=== PATIENT | male | born 1930 | race Two or more races ===

== ENCOUNTER 2017-07-30 09:01 | Emergency (ER) | payer MEDICARE, MEDICAID ==
[2017-07-30 09:21] VITALS: BP 157/57
--- NOTE | 2017-07-30 10:09 | UC ---
Respiratory Complaint HPI - HPI Summary HPI Summary: C/o sob and cough for 4-5 days, no fever, unable to lay flat at night, patient states he gets chest and abdomen with cough - History of Current Complaint Chief Complaint: UCRespiratory Stated Complaint: COUGH ABD PAIN Time Seen by Provider: 07/30/17 10:02 Hx Obtained From: Patient Onset/Duration: Sudden Onset, Lasting Days - 4, Still Present Timing: Constant Severity Initially: Moderate Severity Currently: Moderate Character: Cough: Nonproductive Aggravating Factors: Recumbent Position Alleviating Factors: Upright Position Associated Signs And Symptoms: Positive: Dyspnea - Allergies/Home Medications Allergies/Adverse Reactions: Allergies Allergy/AdvReac Type Severity Reaction Status Date / Time No Known Allergies Allergy Verified 07/30/17 09:21 PMH/Surg Hx/FS Hx/Imm Hx Previously Healthy: Yes - Surgical History Surgical History: Yes Surgery Procedure, Year, and Place: APPENDECTOMY - Family History Known Family History: Positive: None - Social History Occupation: Retired Lives: With Family Alcohol Use: None Substance Use Type: None Smoking Status (MU): Never Smoked Tobacco Review of Systems Constitutional: Negative Skin: Negative Eyes: Negative ENT: Negative Respiratory: Negative, Shortness Of Breath, Cough Cardiovascular: Chest Pain - with cough Gastrointestinal: Negative Genitourinary: Negative Motor: Negative Neurovascular: Negative Musculoskeletal: Negative Neurological: Negative Psychological: Negative Is Patient Immunocompromised?: No All Other Systems Reviewed And Are Negative: Yes Physical Exam Triage Information Reviewed: Yes Appearance: Well-Nourished - mild, Ill-Appearing - mild, Pain Distress - mild Vital Signs: Initial Vital Signs Temp 98.4 F 07/30/17 09:17 Pulse 125 07/30/17 09:17 Resp 18 07/30/17 09:17 BP 157/57 07/30/17 09:17 Pulse Ox 96 07/30/17 09:17 Vital Signs Reviewed: Yes Eye Exam: Normal Eyes: Positive: Conjunctiva Clear ENT Exam: Normal ENT: Positive: Normal ENT inspection, Hearing grossly normal, Pharynx normal, TMs normal, Other - Hard of Hearing. Negative: Nasal congestion, Tonsillar swelling, Tonsillar exudate, Trismus, Muffled voice, Hoarse voice, Dental tenderness Dental Exam: Normal Neck exam: Normal Neck: Positive: Supple, Nontender, No Lymphadenopathy Respiratory Exam: Normal Respiratory: Positive: Chest non-tender, Lungs clear, Normal breath sounds, No respiratory distress, No accessory muscle use Cardiovascular Exam: Normal Cardiovascular: Positive: RRR, No Murmur, Pulses Normal, Brisk Capillary Refill Abdominal Exam: Normal Abdomen Description: Positive: Nontender, No Organomegaly, Soft. Negative: CVA Tenderness (R), CVA Tenderness (L) Bowel Sounds: Positive: Present Musculoskeletal Exam: Normal Musculoskeletal: Positive: Strength Intact, ROM Intact, No Edema Neurological Exam: Normal Neurological: Positive: Alert, Muscle Tone Normal Psychological Exam: Normal Skin Exam: Normal UC Diagnostic Evaluation - Laboratory O2 Sat by Pulse Oximetry: 96 - EKG Cardiac Rate: NL Cardiac Rhythm: AFib: Normal Ectopy: None ST Segment: Normal Respiratory Course/Dx - Course Course Of Treatment: IV, O2, transfer to [facility] [place] by EMS - Differential Dx/Diagnosis Provider Diagnoses: New onset A-fib, SOB Discharge - Discharge Plan Condition: Guarded Disposition: TRANS HIGHER LVL OF CARE FAC Referrals: No Primary Care Phys,NOPCP [Primary Care Provider] -
== END 2017-07-30 10:44 | disposition short-term general hospital (02) ==
LOC: UCEAST 09:01
DX: R06.02 Shortness of breath (principal); I48.91 Unspecified atrial fibrillation; Z90.89 Acquired absence of other organs
CPT/HCPCS: 93005; 99203; G0463

== ENCOUNTER 2017-07-30 11:09 | Observation (INO) | payer MEDICARE, MEDICAID ==
[2017-07-30] MEDS ORDERED: NS 0.9% 1000 ML* 1,000 ML IV ONE (11:25)
[2017-07-30 11:43] LABS: ABS Basophils 0.1 10^3/ul (0-0.2); ABS Eosinophils 0.5 10^3/ul (0-0.6); ABS Lymphocytes 2.9 10^3/ul (1.0-4.8); ABS Monocytes 0.6 10^3/ul (0-0.8); ABS Neutrophils 5.6 10^3/ul (1.5-7.7); ABS Nucleated RBC 0 10^3/ul; Eosinophil % 4.7 % (0-6); Hematocrit 46 % (42-52); Hemoglobin 15.4 g/dl (14.0-18.0); Lymphocyte % 29.8 % (25-47); Mean Corpuscular HGB Conc 34 g/dl (31-36); Mean Corpuscular Hemoglobin 30 pg (27-31); Mean Corpuscular Volume 88 fL (80-94); Mean Platelet Volume 8 um3 (7.4-10.4); Nucleated Red Blood Cells % 0; Platelet Count 250 10^3/ul (150-450); Red Blood Count 5.21 10^6/ul (4.0-5.4); Red Cell Distribution Width 16 % (10.5-15); White Blood Count 9.6 10^3/ul (3.5-10.8)
[2017-07-30 12:06] LABS: INR 0.98 (0.77-1.02)
[2017-07-30 12:47] LABS: Urine Appearance Clear; Urine Blood Negative (Negative); Urine Color Yellow; Urine Ketones Negative (Negative); Urine Protein Negative (Negative); Urine Urobilinogen Positive (Negative)
--- NOTE | 2017-07-30 13:10 | RAD ---
Indication: Shortness of breath. Single frontal view of the chest performed at 1207 hours was reviewed. Comparison is made with previous exam dated July 08, 2012. No mediastinal shift is noted. Heart is of normal size and configuration. Lung frazier appear clear. IMPRESSION: NO ACTIVE CARDIOPULMONARY DISEASE IS NOTED.
--- NOTE | 2017-07-30 14:12 | ED ---
Suhas Ocasio Stephanie, scribed for Salty Lackey MD on 07/30/17 at 1210 . Shortness of Breath - HPI Summary HPI Summary: The pt is an 86 y/o M BIBA from to the ED with c/o SOB that began 6 days ago. Symptoms include productive cough (white and red sputum), abd pain and lower back pain. The pt denies fever, calf pain, lower extremity pain, diarrhea , dysuria and hematuria. The pt reports hemorrhoids for the past two months. 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 Onset/Duration: Lasting Days - 6, Still Present Timing: Constant Associated Signs & Symptoms: Cough (Productive), Cough (Bloody Sputum) - Allergy/Home Medications Allergies/Adverse Reactions: Allergies Allergy/AdvReac Type Severity Reaction Status Date / Time No Known Allergies Allergy Verified 07/30/17 09:21 PMH/Surg Hx/FS Hx/Imm Hx Endocrine/Hematology History: Denies: Hx Diabetes, Hx Thyroid Disease Cardiovascular History: Denies: Hx Hypertension Respiratory History: Denies: Hx Asthma, Hx Chronic Obstructive Pulmonary Disease (COPD) GI History: Denies: Hx Ulcer - Surgical History Surgery Procedure, Year, and Place: APPENDECTOMY Infectious Disease History: No Infectious Disease History: Denies: Hx Clostridium Difficile, Hx Hepatitis, Hx Human Immunodeficiency Virus (HIV), Hx of Known/Suspected MRSA, Hx Shingles, Hx Tuberculosis, Hx Known/ Suspected VRE, Hx Known/Suspected VRSA, History Other Infectious Disease, Traveled Outside the [place] in Last 30 Days - Family History Known Family History: Positive: Unknown - Pt denies family history - Social History Occupation: Retired Lives: With Family Alcohol Use: None Substance Use Type: Reports: None Smoking Status (MU): Never Smoked Tobacco Review of Systems Negative: Fever Positive: Cough - productive Positive: Abdominal Pain. Negative: Diarrhea Positive: other - hemorrhoids . Negative: dysuria, hematuria Positive: Other - lower back pain. Negative: calf pain, lower extremity pain All Other Systems Reviewed And Are Negative: Yes Physical Exam - Summary Physical Exam Summary: General: well-appearing, no acute pain distress Skin: warm, color reflects adequate perfusion, dry Head: normal Eyes: EOMI, BREE ENT: normal Neck: supple, nontender Respiratory: breath sounds present, Bilateral expiratory wheezes. Cardiovascular: RRR Abdomen: soft, nontender Bowel: present Musculoskeletal: normal, strength/ROM intact Neurological: normal, sensory/motor intact, A&O x3 Psychological: affect/mood appropriate Triage Information Reviewed: Yes Vital Signs On Initial Exam: Initial Vitals Temp Pulse Resp BP Pulse Ox 98.4 F 60 17 168/76 95 07/30/17 11:15 07/30/17 11:15 07/30/17 11:15 07/30/17 11:15 07/30/17 11:15 Vital Signs Reviewed: Yes - Schwertner Coma Scale Coma Scale Total: 15 Diagnostics - Vital Signs Vital Signs Temp Pulse Resp BP Pulse Ox 07/30/17 11:30 59 12 158/65 97 07/30/17 11:22 63 13 156/78 98 07/30/17 11:20 59 19 94 07/30/17 11:16 168/76 07/30/17 11:15 98.4 F 60 17 168/76 95 - Laboratory Lab Results: Lab Results 07/30/17 07/30/17 07/30/17 Range/Units 10:13 10:13 11:41 WBC 9.6 (3.5-10.8) 10^3/ul RBC 5.21 (4.0-5.4) 10^6/ul Hgb 15.4 (14.0-18.0) g/dl Hct 46 (42-52) % MCV 88 (80-94) fL MCH 30 (27-31) pg MCHC 34 (31-36) g/dl RDW 16 H (10.5-15) % Plt Count 250 (150-450) 10^3/ul MPV 8 (7.4-10.4) um3 Neut % (Auto) 58.8 (38-83) % Lymph % (Auto) 29.8 (25-47) % Kimble % (Auto) 6.2 (1-9) % Eos % (Auto) 4.7 (0-6) % Baso % (Auto) 0.5 (0-2) % Absolute Neuts (auto) 5.6 (1.5-7.7) 10^3/ul Absolute Lymphs (auto) 2.9 (1.0-4.8) 10^3/ul Absolute Monos (auto) 0.6 (0-0.8) 10^3/ul Absolute Eos (auto) 0.5 (0-0.6) 10^3/ul Absolute Basos (auto) 0.1 (0-0.2) 10^3/ul Absolute Nucleated RBC 0 10^3/ul Nucleated RBC % 0 Sodium 136 (133-145) mmol/L Potassium 4.5 (3.5-5.0) mmol/L Chloride 103 (101-111) mmol/L Carbon Dioxide 27 (22-32) mmol/L Anion Gap 6 (2-11) mmol/L BUN 15 (6-24) mg/dL Creatinine 0.69 (0.67-1.17) mg/dL Est GFR ( Amer) 140.1 (>60) Est GFR (Non-Af Amer) 109.0 (>60) BUN/Creatinine Ratio 21.7 H (8-20) Glucose 120 H (70-100) mg/dL Lactic Acid 0.9 (0.5-2.0) mmol/L Calcium 9.2 (8.6-10.3) mg/dL Magnesium 2.1 (1.9-2.7) mg/dL Total Bilirubin 1.20 H (0.2-1.0) mg/dL AST 43 H (13-39) U/L ALT 38 (7-52) U/L Alkaline Phosphatase 124 H (34-104) U/L Total Creatine Kinase 107 (10-223) U/L CK-MB (CK-2) 4.4 (0.6-6.3) ng/mL Troponin I 0.01 (<0.04) ng/mL C-Reactive Protein 5.24 H (< 5.00) mg/L Total Protein 7.3 (6.4-8.9) g/dL Albumin 4.1 (3.2-5.2) g/dL Globulin 3.2 (2-4) g/dL Albumin/Globulin Ratio 1.3 (1-3) Lipase 18 (11.0-82.0) U/L TSH Pending Result Diagrams: 07/30/17 10:13 07/30/17 10:13 Lab Statement: Any lab studies that have been ordered have been reviewed, and results considered in the medical decision making process. - Radiology CXR Xray Interpretation: No Acute Changes Radiology Interpretation Completed By: Radiologist - NO ACTIVE CARDIOPULMONARY DISEASE IS NOTED. - EKG 11:36 EKG Rhythm: Sinus Bradycardia - 41 BPM. . P waves not easily found. Borderline ST elevation in anterior leads with no reciprocal change. EKG Interpretation: Slow a fib or heart block. Course/Dx - Course Course Of Treatment: Medications reviewed. EKG REVIEWED WITH DR SILVESTRE, CARDIOLOGY. ADMIT HOSPITALIST. NO CRITICAL CARE TIME. - Diagnoses Provider Diagnoses: New onset a-fib, Dyspnea Discharge - Discharge Plan Condition: Stable Disposition: ADMITTED TO [facility] Referrals: No Primary Care Phys,NOPCP [Primary Care Provider] - The documentation as recorded by the Suhas marques Stephanie accurately reflects the service I personally performed and the decisions made by , Salty Lackey MD.
[2017-07-30] MEDS ORDERED: NS 0.9% 1000 ML* 1,000 ML IV SCH (15:00)
[2017-07-30] MEDS: guaiFENesin LIQ* 100 MG/5 ML UDC PO PRN (16:59)
[2017-07-30] MEDS: Acetaminophen TAB* 325 MG PO PRN (16:59)
[2017-07-30] MEDS: Albuterol HFA INHALER* 8 gm MDI INH PRN (18:05)
--- NOTE | 2017-07-30 21:01 | HP ---
CC: Louie Vidales MD * HISTORY AND PHYSICAL: DATE OF ADMISSION: 07/30/17 PRIMARY CARE PROVIDER: Louie Vidales MD ATTENDING PHYSICIAN: Elsi Mazariegos DO * (dictated by Julito Younger NP). CHIEF COMPLAINT: Cough and shortness of breath. HISTORY OF PRESENT ILLNESS: Mr. Estes is an 86-year-old Mexican speaking male, who presented to the emergency room with complaints of 4 to 5 days of shortness of breath and cough and being unable to lie flat due to shortness of breath. He also reports abdominal pain when coughing. He denies any fever or chills. He has been taking rbxe-hif-[id number] cough medication and he does not feel this is helping with his pain. Please note the patient is Mexican speaking only. At the time of my interview, there is no family at bedside to interpret and I had the assistance of hospital technician anatomic pathology to assist with some basic interpretation. Due to the patient's continued cough, his family brought him to the emergency room for further evaluation. The patient initially presented to urgent care when he was found to be in potentially new atrial fibrillation. He was sent to the emergency room for further evaluation. While in the emergency room, the patient had a chest x-ray showing no active cardiopulmonary disease. He had an EKG showing an atrial fibrillation with bradycardic rate of 40. There were no previous EKGs for comparison, but this EKG is similar to previous EKG from urgent care today. He had a negative urinalysis. He had labs that were unremarkable. He had a D-dimer that was less than 200. Troponin 0.01. TSH 1.43. No leukocytosis. PAST MEDICAL HISTORY: 1. Prostate cancer. 2. Hemorrhoids. 3. Possible history of atrial fibrillation, the family is unsure. PAST SURGICAL HISTORY: 1. The patient is status post prostatectomy. 2. Status post cataracts. MEDICATIONS: Home medications include ibuprofen 200 mg oral every 6 hours as needed for pain. ALLERGIES: No known drug allergies. FAMILY HISTORY: The patient denies any family history of heart disease, diabetes or cancer. SOCIAL HISTORY: The patient denies tobacco, recreational drug use. He occasionally drinks alcohol. He lives with his family. His daughter, Forest, will be his surrogate decision maker in the event he is unable to make decisions for himself. REVIEW OF SYSTEMS: I performed a 14-point review of systems. All the pertinent positives and negatives are mentioned in the history of present illness. The remaining review of systems are negative. PHYSICAL EXAMINATION GENERAL APPEARANCE: The patient is alert, pleasant, appears to be in no acute distress. VITAL SIGNS: Temperature 98.6, heart rate 53, respiratory rate 15, O2 sat 98% on room air, blood pressure 143/65. HEENT: Normocephalic and atraumatic. Pupils are equal and reactive to light. Extraocular movements are intact. RESPIRATORY: There is no accessory muscle use and the lungs have expiratory wheezing bilaterally. CARDIOVASCULAR: Irregular rate and rhythm, bradycardic. S1 and S2 are present. There are no murmurs, rubs, or gallops. ABDOMEN: Soft, nontender, and nondistended. Bowel sounds present x4. EXTREMITIES: There is no lower extremity edema. DP and PT pulses are 2+ and symmetric. MUSCULOSKELETAL: There is no clubbing or cyanosis noted. The patient exhibits good strength in all extremities. NEUROLOGIC: The patient is alert and oriented x4. Please note he is Mexican speaking only. Cranial nerves II through XII are grossly intact. PSYCHOLOGICAL: The patient is calm and cooperative. SKIN: There are no rashes or abnormalities. DIAGNOSTIC STUDIES/LABORATORY DATA: Sodium 137, potassium 4.5, chloride 103, CO2 of 27, BUN 15, creatinine 0.69, glucose 123. D-dimer less than 200. Troponin 0.01. CRP 5.24. BNP 146. TSH 1.43. AST 43, ALT 38, total bilirubin 1.20. White blood cell count 9.6, hemoglobin 15.4, hematocrit 46, platelet count 250,000. Urinalysis is negative. EKG from around 10 o'clock this morning shows an atrial fibrillation. Repeat EKG in the emergency room at approximately 11 a.m. shows an atrial fibrillation with a rate of 41. The two EKGs are similar. There is no previous EKGs for comparison. Chest x-ray from today. Radiologist's impression: No active cardiopulmonary disease. IMPRESSION: Mr. Estes is an 86-year-old male with past medical history significant for prostate cancer and hemorrhoids, who presented to the emergency room with complaints of shortness of breath and cough for several days. He will be admitted as an observation for new onset atrial fibrillation and bronchitis. ASSESSMENT/PLAN: 1. Atrial fibrillation. It is unclear if this is truly new onset or not. I will obtain medical records from Dr. Vidales's office. The patient's rate is controlled. He is actually bradycardic at this time. I will not start him on beta-blockers or any other rate controlled agents. According to the CHADS-VASc2 , the patient has 2 points for his age placing him a stroke risk of 2.2% per year and greater than 90,000. The patient is at a 2.9% risk of stroke, transient ischemic attack and systemic embolism. Some recommendations suggest that scores 2 and greater should be anticoagulated. For now, I am going to hold off on anticoagulation. We will obtain old records on the patient and to allow time to discuss with his family, the risks and benefits of anticoagulation therapy. Also check an echocardiogram. The patient had a D- dimer of less than 200. I have a low suspicion that his atrial fibrillation is caused by a pulmonary embolism. We will monitor the patient on telemetry 2. Shortness of breath and cough. I suspect the patient likely has a bronchitis. He is afebrile and has no leukocytosis. I am going to hold on any antibiotics at this time. We will give him albuterol inhaler as needed for shortness of breath and wheeze. If at any point he develops fever or leukocytosis, we will consider antibiotic therapy. His chest x-ray shows no active lung disease at this time. 3. Fluids, electrolytes, and nutrition. The patient will be on a heart healthy diet. 4. Code status. Full code. 5. DVT prophylaxis. The patient is at a high risk. He will be placed on subcu heparin. 6. Disposition. Observation. TIME SPENT: Time for this admission was approximately 60 minutes, greater than half of that was spent with the patient discussing medications, past medical history and the events leading up to his arrival today, and performing a physical examination. The case has been reviewed with the attending, Dr. Mazariegos, who agrees with the plan of care. JULITO YOUNGER, SHAVONNE [id number]/[facility] #: [id number] F F THOMPSON HOSPITALAnaid
[2017-07-30] MEDS: Heparin VIAL(*) 5000 UNITS/ML VIAL (FIVE THOUSAND) SUBCUT SCH (22:40)
--- NOTE | 2017-07-31 00:04 | PN ---
Progress Note - Progress Note Date of Service: 07/31/17 Note: Patient sleeping and noted to have frequent pauses as long as 3 seconds. Not on any cardiac meds currently. Will continue to monitor on tele - consider cardiology eval for ?pacemaker.
[2017-07-31] MEDS: Albuterol HFA INHALER* 8 gm MDI INH PRN ×2 (02:59→08:05)
[2017-07-31] MEDS: guaiFENesin LIQ* 100 MG/5 ML UDC PO PRN (03:00)
[2017-07-31] MEDS: Acetaminophen TAB* 325 MG PO PRN (05:12)
[2017-07-31] MEDS: Heparin VIAL(*) 5000 UNITS/ML VIAL (FIVE THOUSAND) SUBCUT SCH ×2 (05:12→15:41)
[2017-07-31] MEDS ORDERED: Polyethylene Glycol 3350* 17 GM PACKET PO PRN (10:06)
--- NOTE | 2017-07-31 14:16 | ECHO ---
Patient: CHARMAINE HERNANDEZ [facility] Rec#: [id number] : 1930 Date: 07/31/2017 Age: 86y Height: 160.02 cm / 63.0 in Weight: 75.3 kg / 166.0 lbs Sex: M BSA: 1.79 Room#: 443 Admit Date#: 07/30/2017 Type: Inpatient Referring: Verna Lancaster NP Reading: Michael May MD Oral Surgery Physician: [facility] Tr[facility] Indication: New A-fib, shortness of breath BP: 141/49 HR: 53 Rhythm: A-Fib Findings History: Prostate cancer with removal. Technical Comments: The study quality is fair. The study is technically limited due to poor parasternal windows. Completed at 0840. Left Ventricle: The left ventricular chamber size is normal. Mild concentric left ventricular hypertrophy is observed. Global left ventricular wall motion and contractility are within normal limits. There is normal left ventricular systolic function. The estimated ejection fraction is 50-55%. The assessment of diastolic function is non-diagnostic. Left Atrium: The left atrium is moderate to severely dilated. Right Ventricle: Moderator Band present. The right ventricular cavity size is normal. The right ventricular global systolic function is normal. Right Atrium: The right atrium is moderate to severely dilated. Aortic Valve: The aortic valve is trileaflet. The aortic valve leaflets are mildly thickened. There is no evidence of aortic regurgitation. There is no evidence of aortic stenosis. Mitral Valve: The mitral valve leaflets are mildly thickened. There is a trace of mitral regurgitation. Tricuspid Valve: The tricuspid valve leaflets are normal. There is trace to mild tricuspid regurgitation. The right ventricular systolic pressure is estimated at 42 mmHg. There is evidence of mild pulmonary hypertension. Pulmonic Valve: The pulmonic valve appears normal. There is no evidence of pulmonic regurgitation. There is no pulmonic stenosis. Pericardium: There is no significant pericardial effusion. Aorta: There is no dilatation of the ascending aorta. There is no dilatation of the aortic arch. The aortic root is normal in size. Pulmonary Artery: The main pulmonary artery is not well visualized. Venous: The inferior vena cava is dilated. There is a greater than 50% respiratory change in the inferior vena cava dimension. Conclusions There is normal left ventricular systolic function. The estimated ejection fraction is 50-55%. Global left ventricular wall motion and contractility are within normal limits. The left ventricular chamber size is normal. Mild concentric left ventricular hypertrophy is observed. The left atrium is moderate to severely dilated. The right atrium is moderate to severely dilated. There is trace to mild tricuspid regurgitation. There is evidence of mild pulmonary hypertension. There is no prior echocardiogram available to compare with at this time. Measurements Name Value Normal Range RVIDd (AP) 2D 2.8 cm (0.9 - 2.6) RVDdMajor (2D) 4.5 cm (2.2 - 4.4) RAd ISD 4CH 6.6 cm (3.4 - 4.9) RA (A4C)W 5.4 cm (2.9 - 4.6) IVSd (2D) 1.1 cm (0.6 - 1) LVPWd (2D) 1.1 cm (0.6 - 1) LVIDd (2D) 4.6 cm (3.6 - 5.4) LVIDs (2D) 3.2 cm - LV FS (2D) 31 % (25 - 45) Aortic Annulus 2.1 cm (1.4 - 2.6) Ao root diameter (2D) 3.2 cm (2.1 - 3.5) Ascending Ao 3.2 cm (2.1 - 3.4) Aortic arch 2.8 cm (1.8 - 3.4) LA dimension (AP) 2D 3.8 cm (2.3 - 3.8) LAd ISD 4CH 6.3 cm (2.9 - 5.3) LA ISD 4CH W 4.9 cm (2.5 - 4.5) Name Value Normal Range LA ESV SP 4CH (A/L) 96 ml - LA ESV SP 2CH (A/L) 87 ml - LA ESV BP (A/L) 92 ml - LA ESV BP (A/L) index 51 ml/m2 - LA ESV SP 4CH (MOD) 88 ml - LA ESV SP 2CH (MOD) 84 ml - Name Value Normal Range MV E-wave Vmax 0.87 m/sec - MV deceleration time 271.6 msec - MV E:A ratio 161.3 ratio - LV septal e' Vmax 0.07 m/sec - LV lateral e' Vmax 0.1 m/sec - LV E:e' septal ratio 12.43 ratio - LV E:e' lateral ratio 8.7 ratio - Name Value Normal Range AV Vmax 1.1 m/sec - AV VTI 27.3 cm - AV peak gradient 4.7 mmHg - AV mean gradient 2.71 mmHg - LVOT Vmax 0.7 m/sec - LVOT VTI 16.62 cm - LVOT peak gradient 2.02 mmHg - LVOT mean gradient 1.08 mmHg - JESSICA Vmax 0.77 m/sec - Name Value Normal Range TR Vmax 2.9 m/sec - TR peak gradient 34 mmHg - RAP 8 mmHg - RVSP 42 mmHg - IVC diameter 1.9 cm - Name Value Normal Range PV Vmax 0.62 m/sec - PV peak gradient 1.53 mmHg -
--- NOTE | 2017-07-31 14:18 | PN ---
Subjective Date of Service: 07/31/17 Interval History: Patient seen and examined at bedside with family present to assist with interpretation. Denies fever, chills, shortness of breath, chest discomfort ( but reports discomfort from coughing), N/V/D. Pt's family reports that he has recently been following with his PCP for hemorrhoids. They report that the Bronchitis dx Pt reported on admission was several years ago. Tele: Afib, rate 40's with numerous pauses of around 2 to 3 seconds. Family History: Unchanged from Admission Social History: Findings - Pt chews nadine leaves Past Medical History: Findings - Skin cancer Objective Active Medications: Acetaminophen (Tylenol Tab*) 650 mg PO Q4H PRN Reason: FEVER/PAIN Albuterol (Ventolin Hfa Inhaler*) 2 puff INH Q4H PRN Reason: SOB/WHEEZING Guaifenesin (Robitussin*) 5 ml PO Q6H PRN Reason: COUGH Heparin Sodium (Porcine) (Heparin Vial(*)) 5,000 units SUBCUT Q8HR CHANCE Polyethylene Glycol/Electrolytes (Miralax*) 17 gm PO DAILY PRN Reason: CONSTIPATION Vital Signs - 8 hr 07/31/17 07/31/17 07:26 08:07 Temperature 98.0 F Pulse Rate 50 48 Respiratory 20 16 Rate Blood Pressure 129/61 (mmHg) O2 Sat by Pulse 96 94 Oximetry Oxygen Devices in Use Now: None Appearance: NAD, laying in bed Ears/Nose/Mouth/Throat: Mucous Membranes Moist Respiratory: Symmetrical Chest Expansion and Respiratory Effort, Clear to Auscultation Cardiovascular: NL Sounds; No Murmurs; No JVD, - - Heart rate irregular, slow Abdominal: NL Sounds; No Tenderness; No Distention Extremities: No Edema Skin: No Rash or Ulcers Neurological: Alert and Oriented x 3, NL Muscle Strength and Tone, - Lines/Tubes/Other Access: Clean, Dry and Intact Peripheral IV - site benign Nutrition: Taking PO's Result Diagrams: 07/30/17 10:13 07/30/17 10:13 Additional Lab and Data: Assess/Plan/Problems-Billing Assessment: Mr. Estes is an 86 yo male with PMH significant for ? prostate ca, skin cancer, and hemorrhoids who presented to the emergency room for the urgent care center with complaints of a cough and was found to have new onset afib. - Patient Problems (1) Afib Code(s): I48.91 - UNSPECIFIED ATRIAL FIBRILLATION SNOMED Code(s): 72172202 Comment: - Rate is controlled without rate control agents - CHADsVASC2 score - 2 - Echo pending - Will ask cardiology to consult (2) Bradycardia Code(s): R00.1 - BRADYCARDIA, UNSPECIFIED SNOMED Code(s): 73318595 Comment: - With pauses - not on medications to cause bradycardia - Will ask cardiology to consult (3) Cough Code(s): R05 - COUGH SNOMED Code(s): 95856044 Comment: - Present for 4 to 5 days - Lung sound with intermittent wheeze and rhonchi - Afebrile and no leukocytosis - Suspect secondary to a viral URI, possibly Bronchitis - Will hold on ABX at this time - Continue supportive care, albuterol PRN, guaifenesin PRN (4) DVT prophylaxis Code(s): QFI5736 - SNOMED Code(s): 263251049 Comment: - SQ heparin (5) Full code status Code(s): Z78.9 - OTHER SPECIFIED HEALTH STATUS SNOMED Code(s): 707624532 Status and Disposition: OBV. Discharge to home when medically stable. Possibly later today after a cardiology consult.
[2017-07-31 17:21] VITALS: BP 149/58
--- NOTE | 2017-08-01 00:24 | CONS ---
CC: Louie Vidales MD CARDIOLOGY CONSULTATION: DATE OF CONSULT: 07/31/17 REFERRING PHYSICIAN: Verna Gruber NP and Elsi Mazariegos DO REASON FOR CONSULTATION: I was kindly asked to see this patient for Cardiology consultation by Ms. Heck because of concern for atrial fibrillation with slow ventricular response rate and pauses to 3 seconds while sleeping. HISTORY OF PRESENT ILLNESS: The patient is Upper Sorbian speaking, but he has requested that his 2 granddaughters and son-in-law, who are present at the bedside translate for him. It appears that about a week or so, he has been having a cough with URI symptoms. He went to Urgent Care and because he was complaining of chest pain and abdominal pain with coughing, they did an EKG where he was found to have atrial fibrillation. The patient notes that when he coughs, he does have chest pain and/or abdominal pain, which seems to radiate to his arms and back. He denies shortness of breath. He denies prior [place], cardiac surgery, or atrial fibrillation diagnosis. He has had palpitations for several years. He denies fainting. He does not do regular exercise, but remains very active and his granddaughters estimate that he walks for hours per day. He has recently been diagnosed with hemorrhoids, but they are not bleeding. PAST MEDICAL HISTORY: Significant for prostate cancer, hemorrhoids and unclear if he has been diagnosed with atrial fibrillation in the past or not. PAST SURGICAL HISTORY: Status post prostatectomy and cataract surgery. HOME MEDICATIONS: Include ibuprofen 200 mg as needed for pain every 6 hours. ALLERGIES TO MEDICATIONS: None. He denied shrimp, sea food allergy. FAMILY HISTORY: Negative for cardiac disease. It is also reported that there is no family history of diabetes or cancer. SOCIAL HISTORY: The patient does not smoke cigarettes, abuse alcohol nor use illicit drugs. He does chew coca leaves, which is apparently common in the countries from, which is [place]. He does not drink coffee. He has been for more than 50 years. 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 REVIEW OF SYSTEMS: Other review of systems obtainment limited, but seem negative except as described above. PHYSICAL EXAMINATION: Height 5 feet 3 inches, weight 166 pounds, temperature 98 degrees, pulse is ranging from 50 to 48, blood pressure is 129/61 to 148/75. O2 saturation 94%. On general exam, he is a pleasant, elderly gentleman, in no acute distress. HEENT shows the cranium is normocephalic and atraumatic. He has dry mucosal membranes. Neck veins are not distended. There are no carotid bruits visible. Skin warm and perfused. The affect is appropriate. He appears oriented. Mild kyphoscoliosis on recumbent back exam. Lungs revealed some rhonchi anteriorly. No wheezes. Cardiac exam, S1 and S2, irregular rate, controlled. No significant murmurs, rubs or gallops. PMI is nondisplaced. Abdomen is soft, nondistended, appears benign. Extremities with no more than trivial peripheral edema. Pulses appear grossly intact. DIAGNOSTIC STUDIES/LAB DATA: The patient had a transthoracic echocardiogram earlier today, which showed normal left ventricular ejection fraction of 50% to 55% with moderate to severe biatrial dilatation and mild pulmonary hypertension. White blood cell count 9.6, hematocrit 46, platelet count 250. I am not able to review his serum chemistries on the computer I am using at the hospital; but per his advanced practice provider, Ms. Heck, his chemistries were otherwise benign including normal renal function. A 12-lead EKG reviewed on 07/30/17 at 11:36, which shows atrial fibrillation at 41 beats per minute, nonspecific IVCD and mild ST-T wave changes. IMPRESSION: Mr. Estes is an 86-year-old gentleman, admitted to the hospital with URI and what appears to be prior noncardiac chest pain with chest pain and abdominal pain only occurring with coughing. He is found to have slow atrial fibrillation, which is likely longstanding as he has had several years of palpitations and it may have been paroxysmal if not diagnosed prior. Likely the stress of his URI could have caused a recurrence of his paroxysmal atrial fibrillation. I have reviewed also his telemetry and he has pauses of approximately the longest of 3.25 seconds while sleeping, but no prolonged pauses and his heart rate is generally in the 40's to 50's with which he seems asymptomatic. I have discussed this in detail with the patient and his family and we are making the following recommendations. RECOMMENDATIONS: 1. At this time, there is not a firm indication for pacemaker. Obviously, would avoid AV aditya blockade agents. We will continue to monitor this. 2. Given that he is reported to have normal renal function, he could be trialed on a NOAC for his AF given CHADS2-VASc score of at least 2 and no bleeding. 3. The patient will follow up with myself in 1 month and can further evaluate eligibility for pacemaker and ischemic workup as needed at that time. 4. Would recommend discontinuing coca leaf chewing as it likely contains caffeine in the patient's family's opinion. 5. Avoid ibuprofen given the adverse CVS risk profile with the NSAID class of medications especially as he will be beginning a NOAC. 6. Further management as per the hospitalist medicine service including regarding his URI with some rhonchi heard on exam and I have discussed the case with Ms. Heck. Dear Ms. Heck and Dr. Mazariegos, many thanks for this kind cardiac consultation opportunity. Please do not hesitate to contact me if you have any questions or concerns regarding this patient's cardiovascular consultative care. The above was discussed in detail with the patient and his family with all questions answered and they are in agreement with these recommendations. [id number]/[facility] #: [id number] MTDD
--- NOTE | 2017-08-02 10:03 | DS ---
CC: Dr. Louie Vidales; Dr. Michael May * DISCHARGE SUMMARY: DATE OF ADMISSION: 07/30/17 DATE OF DISCHARGE: 07/31/17 ATTENDING PHYSICIAN: Dr. Elsi Mazariegos * (dictated by Julito Acosta NP). PRIMARY CARE PROVIDER: Louie Vidales MD PRIMARY DIAGNOSES: 1. New-onset atrial fibrillation. 2. Bradycardia. 3. Upper respiratory infection with possible bronchitis. SECONDARY DIAGNOSIS: Hemorrhoids. CONSULTATIONS WHILE IN HOSPITAL: Dr. Michael May with Cardiology. STUDIES WHILE IN THE HOSPITAL: 1. Chest x-ray on 07/30/17. Radiologist's impression: No active cardiopulmonary disease. 2. Transthoracic echocardiogram on 07/31/17. Systems Software Engineer's conclusion: There is normal left ventricular systolic function. The estimated ejection fraction is 50% to 55%. Global left ventricular wall motion and contractility are within normal limits. The left ventricular chamber size is normal. Mild concentric left ventricular hypertrophy is observed. The left atrium is moderate to severely dilated. The right atrium is moderate to severely dilated. There is mpini-sw-knic tricuspid regurgitation. There is evidence of mild pulmonary hypertension. There is no prior EKG for comparison at this time. DISCHARGE MEDICATIONS: New home medications: 1. Albuterol HFA inhaler 2 puffs inhalation every 4 hours as needed for shortness of breath or wheeze. 2. Mucinex 600 mg oral twice daily. 3. Xarelto 20 mg oral daily. Continued home medications: MiraLAX 17 g oral daily as needed for constipation. Discontinued home medications: Ibuprofen 200 mg oral every 6 hours as needed for pain. HISTORY OF PRESENT ILLNESS/HOSPITAL COURSE: Mr. Estes is an 86-year-old Kinyarwanda - speaking male, who presented to the emergency room with complaints of 4 to 5 days of shortness of breath and cough, being unable to lie flat due to his shortness of breath. He also reported abdominal discomfort due to his coughing. He denied any fever chills, reported taking [id number] cough medication and pain medication and does not feel this was helping. The patient' s history was obtained from his family and in addition to staff, who assisted with interpretation. Due to the patient's cough, he presented to urgent care, where he was found to have potentially new atrial fibrillation and referred to the emergency room. While in the emergency room, the patient had a chest x-ray showing no active cardiopulmonary disease, in addition to an EKG showing atrial fibrillation with bradycardic rate of 40. He had no previous EKGs for comparison. He had a D- dimer showing that was less than 200, in addition to troponin 0.01 and TSH of 1.43 and no leukocytosis. The hospitalists were asked to evaluate the patient for admission. While in the hospital, the patient was noted to continue to be bradycardic with over 2-second pauses. Cardiology was asked to consult on the patient. The patient's D-dimer was less than 200; it was felt that his AFib was likely not caused by PE. In terms of his cough, it was suspected he had an upper respiratory tract infection and bronchitis. He was not started on antibiotics due to having no leukocytosis, being afebrile. Dr. May with Cardiology saw the patient in consultation and felt that there was no firm indication for pacemaker and to avoid AV aditya blocking agents. It was recommended he be started on NOAC due to his CHADs-VASc score of at least a 2 and no signs of bleeding. It was recommended he follow up with Cardiology outpatient in addition to stopping chewing his coca leaves as they likely contain caffeine. He was also asked to avoid ibuprofen given the adverse CVS risks with NSAIDs while he is on NOAC. Mr. Estes was stable for discharge to home. Vital signs are as follows: Temperature 97.6, heart rate 45, respiratory rate 16, O2 saturation 97% on room air, blood pressure 149/58. DISCHARGE PLAN: Mr. Estes will be discharged to home, activity as tolerated. He will be on a heart healthy diet. The patient has been encouraged to stop chewing coca leaves as they may contain caffeine. As far as the patient's AFib , he is bradycardic at this time and will not be started on any rate-control agents. He has been started on Xarelto 20 mg oral daily. He had a CHADs2-VASc score of at least a 2. He has been instructed to stop taking ibuprofen, since he is started on the NOAC. Recommended avoiding AV blocking agents. He should see Dr. May and follow up in approximately in [address] May's office will call the patient with an appointment date. As far as the patient's upper respiratory infection, he intermittently has some rhonchi heard. He is afebrile and has no leukocytosis. He will be continued with supportive care with albuterol and Mucinex, but I am not going to start him on an antibiotic at this time as I suspect this is viral in nature. The patient should be seen in followup by his primary care provider Dr. Vidales, Dr. Vidales's office will call the patient with an appointment date and time for an appointment next week. The patient has been asked to return to the emergency room for any chest pain or shortness of breath. This is a summarized report of complex medical history and hospital stay. For further details, please see the entire medical record. TIME SPENT: Time for this discharge was approximately 50 minutes, greater than half of that was spent with the patient and family discussing discharge plans and instructions. JULITO YOUNGER, [place] [id number]/[facility] #: [id number] NINO
== END 2017-07-31 17:15 | disposition home or self-care (01) ==
LOC: ED 11:09 → MEDTELE 14:51
PROVIDERS: ADMIT Internal Medicine; ATTEND Internal Medicine
DX: I48.91 Unspecified atrial fibrillation (principal); R00.1 Bradycardia, unspecified; J06.9 Acute upper respiratory infection, unspecified; K64.9 Unspecified hemorrhoids; R06.02 Shortness of breath; Z85.46 Personal history of malignant neoplasm of prostate; I51.7 Cardiomegaly
CPT/HCPCS: 36415; 71045; 80053; 81003; 82550; 82553; 83605; 83690; 83735; 83880; 84443; 84484; 85025; 85379; 85610; 85730; 86140; 93005; 93306; 94640; 94760; 96360; 96361; 96372; 99284; A9270-GY; G0378; J1644

== ENCOUNTER 2018-10-19 09:12 | Day surgery (SDC) | payer MEDICARE, MEDICAID ==
[~2018-10-19 09:12] MED LIST: Buffered Lidocaine 1% SYRIN* 1 ML/SYRINGE INTRADERM ONE; Dexamethasone IV* 4 MG/ML 1 ML (4 MG) IV SLOW PU ONE; Famotidine IV* 10 MG/ML 2 ML (20 mg) IV ONE; Lactated Ringers 1000 ML Bag* 1,000 ML IV SCH
[2018-10-19] MEDS ORDERED: Buffered Lidocaine 1% SYRIN* 1 ML/SYRINGE INTRADERM ONE (09:30)
[2018-10-19] MEDS ORDERED: Dexamethasone IV* 4 MG/ML 1 ML (4 MG) ONE (09:30)
[2018-10-19] MEDS ORDERED: Famotidine IV* 10 MG/ML 2 ML (20 mg) ONE (09:31)
[2018-10-19] MEDS ORDERED: ceFAZolin 2 GM in NS PREMIX(*) 2 GM/100 ML BAG IVPB ONE (09:31)
[2018-10-19] MEDS ORDERED: Naloxone* 0.4 MG/ML 1 ML VIAL IV PRN (11:06)
[2018-10-19] MEDS ORDERED: Lidocain 1% EPI 1:100,000 * 30 ML MDV ONE ×2 (11:12→12:43)
[2018-10-19] MEDS ORDERED: Mineral Oil Sterile, TOPICAL* 25 ML BTL ONE (11:13)
[2018-10-19] MEDS ORDERED: Bupivacaine 0.25% SDV PF* 10 ML VIAL INJ ONE (11:13)
[2018-10-19] MEDS ORDERED: Propofol* 10 MG/ML 20 ML BTL ONE (11:15)
[2018-10-19] MEDS ORDERED: Midazolam* 1 MG/ML 5 ML VIAL (5 MG) ONE (11:15)
[2018-10-19] MEDS ORDERED: Ondansetron INJ* 2 MG/ML VIAL ONE (11:15)
[2018-10-19] MEDS ORDERED: fentaNYL* 50 MCG/ML 2 ML VIAL (100 MCG VIAL) ONE (11:15)
[2018-10-19] MEDS ORDERED: Artificial Tears* 15 ML BTL ONE (11:15)
[2018-10-19] MEDS ORDERED: BSS OPTH.SOL* BTL ONE (11:16)
[2018-10-19] MEDS ORDERED: Carboxymethylcellulose/Glyceri 10 ML OPHTH.GEL lubricant eye gel ONE (11:17)
[2018-10-19] MEDS ORDERED: Tetracaine 0.5% OPTH.SOL 4 ML* 1 DROP BTL ONE (11:52)
[2018-10-19 13:59] VITALS: BP 156/72
== END 2018-10-19 14:21 | disposition home or self-care (01) ==
LOC: OR 09:12
PROVIDERS: ATTEND Plastic Surgery
DX: C44.1122 Basal cell carcinoma of skin of right lower eyelid, including canthus (principal); I48.91 Unspecified atrial fibrillation; I10 Essential (primary) hypertension; Z79.01 Long term (current) use of anticoagulants
CPT/HCPCS: 88305; 88331; 88332; A9270-GY; J0690; J1100; J2250; J2405; J2704; J3010; J3490

== ENCOUNTER 2019-03-29 19:08 | Emergency (ER) | payer MEDICARE, MEDICAID ==
[2019-03-29 19:38] VITALS: BP 162/66
[2019-03-29] MEDS ORDERED: methylPREDNISolone 125 MG* 2 ML VIAL IV ONE (19:43)
[2019-03-29] MEDS ORDERED: Albuterol 2.5 MG/3 ML NEB.SOL* (0.083%) INH ONE (19:44)
[2019-03-29] MEDS ORDERED: Ipratropium 0.5MG/2.5ML NEB* 0.5 MG/2.5 ML NEB.SOLN INH ONE (19:44)
[2019-03-29] MEDS ORDERED: Acetaminophen TAB* 325 MG PO ONE (19:55)
--- NOTE | 2019-03-29 19:55 | UC ---
Shortness of Breath HPI - HPI Summary HPI Summary: 7 HOUR FLIGHT FROM [place] 2 DAYS AGO. LATER THAT DAY PATIENT DEVELOPED COUGH, SHORTNESS OF BREATH AT REST AND CHEST PAIN ASSOCIATED WITH HIS COUGH. FOUND TO HAVE FEVER HERE IN THE UC. HAS A KNOWN HISTORY OF ATRIAL FIBRILLATION AND IS ON XARELTO. NO KNOWN UNDERLYING LUNG DISEASE. POSSIBLE REMOTE HISTORY OF SMOKING ACCORDING TO THE GRANDDAUGHTER. - History of Current Complaint Chief Complaint: UCRespiratory Stated Complaint: COUGH, SOB Time Seen by Provider: 03/29/19 19:24 Hx Obtained From: Patient, Family/Apprenticeship Training Representative - GRANDDAUGHTER Onset/Duration: Sudden Onset, Lasting Days, Still Present Timing: Constant Current Severity: Moderate Dyspnea At: Rest, Exertion Aggravating Factors: Movement Alleviating Factors: Nothing Associated Signs & Symptoms: Positive: Cough (Nonproductive), Wheezing, Chest Pain w/Cough, Fever, Chills - Allergy/Home Medications Allergies/Adverse Reactions: Allergies Allergy/AdvReac Type Severity Reaction Status Date / Time No Known Allergies Allergy Verified 03/29/19 20:39 PMH/Surg Hx/FS Hx/Imm Hx Cardiovascular History: Hypertension, Atrial Fibrillation Other Cancer History: BASAL CELL CARCINOMA - Surgical History Surgical History: Yes Surgery Procedure, Year, and Place: bladder 2006. APPENDECTOMY,. prostate surgery - Family History Known Family History: Positive: None, Unknown - Pt denies family history - Social History Alcohol Use: None Substance Use Type: None Substance Use Comment - Amount & Last Used: coca leaves Smoking Status (MU): Never Smoked Tobacco Review of Systems All Other Systems Reviewed And Are Negative: Yes Constitutional: Positive: Fever ENT: Positive: Negative Respiratory: Positive: Shortness Of Breath, Cough Cardiovascular: Positive: Negative Gastrointestinal: Positive: Negative Physical Exam Triage Information Reviewed: Yes Appearance: No Pain Distress, Well-Nourished, Ill-Appearing - MODERATE INCREASED WORK OF BREATHING Vital Signs: Initial Vital Signs Temp 101.5 F 03/29/19 19:24 Pulse 67 03/29/19 19:24 Resp 18 03/29/19 19:24 BP 162/66 03/29/19 19:24 Pulse Ox 95 03/29/19 19:24 Vital Signs Reviewed: Yes Eyes: Positive: Conjunctiva Clear ENT: Positive: Hearing grossly normal Neck: Positive: Supple Respiratory: Positive: Decreased breath sounds, Accessory muscle use, Wheezing Cardiovascular: Positive: Pulses Normal, Other: - IRREGULARLY IRREGULAR Abdomen Description: Positive: Soft Musculoskeletal: Positive: Edema @ - 2+ NON PITTING EDEMA Neurological: Positive: Alert, Muscle Tone Normal Psychological: Positive: Normal Response To Family, Age Appropriate Behavior Skin: Negative: Rashes Diagnostics - EKG Summary of EKG Findings: AFIB 67 BPM Shortness of Breath Dx - Course Course Of Treatment: PRESENTS WITH 2 DAYS OF PROGRESSIVELY WORSENING RESPIRATORY DISTRESS/SHORTNESS OF BREATH AND FATIGUE. FOUND TO HAVE FEVER 101.3 HERE IN THE AND IS TACHYPNEIC. EXTENSIVE WHEEZING ON PHYSICAL EXAM. EKG CONFIRMS KNOWN AFIB WITH CONTROLLED VENTRICULAR RESPONSE. PATIENT IS ALREADY ON XARELTO. PATIENT HAS NO KNOWN UNDERLYING LUNG CONDITION. PRIOR TO ONSET OF SYMPTOMS TOOK A [address] TRIP BACK FROM [place]. DIFFERENTIAL INCLUDES PE, PNEUMONIA, HEART FAILURE. REQUIRES HIGHER LEVEL OF CARE THAN WHAT IS AVAILABLE IN THE . [place] [facility] [place]. 125MG SOLUMEDROL IV GIVEN AND ALBUTEROL/IPRATROPIUM NEB STARTED. - Differential Dx/Diagnosis Provider Diagnosis: Respiratory distress, Fever - Physician Notification/Consults Discussed Patient Care With: Reagan Vidal - [place] [facility] Time Discussed With Above Provider: 19:45 Instructed by Provider To: Will See In ED Discharge ED - Sign-Out/Discharge Documenting (check all that apply): Patient Departure All imaging exams completed and their final reports reviewed: No Studies - Discharge Plan Condition: Guarded Disposition: TRANS HIGHER LVL OF CARE FAC Referrals: Louie Vidales MD [Primary Care Provider] - - Billing Disposition and Condition Condition: GUARDED Disposition: Trans Higher Lvl of Care Fac
== END 2019-03-29 20:20 | disposition short-term general hospital (02) ==
LOC: UCEAST 19:08
DX: R06.03 Acute respiratory distress (principal); R50.9 Fever, unspecified; I48.91 Unspecified atrial fibrillation; I10 Essential (primary) hypertension
CPT/HCPCS: 96374; 99213; A9270-GY; G0463; J2930

== ENCOUNTER 2019-03-29 20:26 | Observation (INO) | payer MEDICARE, MEDICAID ==
[2019-03-29] MEDS ORDERED: Albuterol/Ipratropium NEB.SOL* Albuterol 2.5 MG/Ipratropium 0.5 MG 3 ML INH ONE (21:13)
--- NOTE | 2019-03-29 21:23 | ED ---
Shortness of Breath - HPI Summary HPI Summary: Patient is an 88 year old male with productive cough and shortness of breath that began on thursday. Patient was in [place] when symptoms began and returned today. Patient does not speak polish; niece is in the room to translate and relay information. Cough has been worsening since thursday and he has yellow sputum. Cough and chest pain is worse when laying down and better when sitting up. Patient had a fever today when he was seen at around 8pm and was given tylenol. Fever subsided when he came to the ED. He denies any heart palpitations , or recent illnesses. No N/V/D, no edema. Patient denies back pain or abdominal pain. History of Afib, patient takes Xarelto. - History of Current Complaint Chief Complaint: EDShortnessOfBreath Time Seen by Provider: 03/29/19 20:58 Hx Obtained From: Family/Securities Supervisor Onset/Duration: Gradual Onset, Lasting Days Timing: Constant Current Severity: Moderate Dyspnea At: Exertion Aggravating Factors: Other - laying down Alleviating Factors: Upright Position Associated Signs & Symptoms: Cough (Productive) - yellow sputum, Chest Pain w/ Cough, Fever - Risk Factors Pulmonary Embolism: Recent Travel Cardiac: Negative Pseudomonas: Negative Tuberculosis: Negative - Allergy/Home Medications Allergies/Adverse Reactions: Allergies Allergy/AdvReac Type Severity Reaction Status Date / Time No Known Allergies Allergy Verified 03/29/19 20:39 PMH/Surg Hx/FS Hx/Imm Hx Endocrine/Hematology History: Reports: Hx Anemia Denies: Hx Diabetes, Hx Thyroid Disease Cardiovascular History: Reports: Hx Hypertension, Other Cardiovascular Problems/ Disorders - a fib Respiratory History: Reports: Other Respiratory Problems/Disorders Denies: Hx Asthma, Hx Chronic Obstructive Pulmonary Disease (COPD) GI History: Reports: Other GI Disorders - vit b12 defiency and iron , anemia Denies: Hx Ulcer History: Reports: Other Problems/Disorders - prostate ca and removal Sensory History: Reports: Hx Contacts or Glasses - reading, Hx Hearing Aid, Hx Hearing Problem Opthamlomology History: Reports: Hx Contacts or Glasses - reading - Cancer History Cancer Type, Location and Year: prostate ca 2010 - Surgical History Surgery Procedure, Year, and Place: bladder 2006. APPENDECTOMY,. prostate surgery Hx Anesthesia Reactions: No Infectious Disease History: No Infectious Disease History: Reports: Traveled Outside the [place] in Last 30 Days Denies: Hx Clostridium Difficile, Hx Hepatitis, Hx Human Immunodeficiency Virus (HIV), Hx of Known/Suspected MRSA, Hx Shingles, Hx Tuberculosis, Hx Known/ Suspected VRE, Hx Known/Suspected VRSA, History Other Infectious Disease - Family History Known Family History: Positive: None, Unknown - Pt denies family history - Social History Alcohol Use: None Substance Use Type: Reports: None Substance Use Comment - Amount & Last Used: coca leaves Smoking Status (MU): Never Smoked Tobacco Review of Systems Constitutional: Negative Positive: Fever. Negative: Chills, Fatigue Eyes: Negative ENT: Negative Negative: Sore Throat Positive: Chest Pain - with cough Positive: Shortness Of Breath, Cough Gastrointestinal: Negative Genitourinary: Negative Positive: no symptoms reported Musculoskeletal: Negative Skin: Negative Neurological: Negative Psychological: Normal All Other Systems Reviewed And Are Negative: Yes Physical Exam Triage Information Reviewed: Yes Vital Signs On Initial Exam: Initial Vitals Temp Pulse Resp BP Pulse Ox 98.6 F 91 18 147/81 95 03/29/19 20:33 03/29/19 20:33 03/29/19 20:33 03/29/19 20:33 03/29/19 20:33 Vital Signs Reviewed: Yes Appearance: Positive: Well-Appearing, No Pain Distress, Obese Skin: Positive: Warm, Skin Color Reflects Adequate Perfusion, Dry Head/Face: Positive: Normal Head/Face Inspection Eyes: Positive: Normal, EOMI, BREE, Conjunctiva Clear ENT: Positive: Normal ENT inspection, Hearing grossly normal Neck: Positive: Supple, Nontender, No Lymphadenopathy Respiratory/Lung Sounds: Positive: Rales - in all lung frazier, Wheezes - in all lung frazier Cardiovascular: Positive: Normal, RRR, Pulses are Symmetrical in both Upper and Lower Extremities Abdomen Description: Positive: Soft Musculoskeletal: Positive: Normal Neurological: Positive: Normal Psychiatric: Positive: Normal Diagnostics - Vital Signs Vital Signs Temp Pulse Resp BP Pulse Ox 03/29/19 20:33 98.6 F 91 18 147/81 95 - Laboratory Result Diagrams: 03/29/19 21:41 03/29/19 21:41 Lab Statement: Any lab studies that have been ordered have been reviewed, and results considered in the medical decision making process. Course/Dx - Course Course Of Treatment: Patient placed on airborne precautions. On exam, wheezing and rales heard in all lung frazier. RRR, no murmurs. No abdominal tenderness to palpation. Pulses 2+ and equal in the upper and lower extremities. No peripheral edema. EKG shows AFib with a rate of 89, no STEMI. Albuterol treatment given with improvment, currently 96% on RA. CRP 52.99, BNP 212, DDimer 264, WBC 12.2. CXR shows multifocal pneumonia with obscured right heart border; no signs of TB. Patient taken off of airborne precautions. Spoke with hospitalist Sita who agrees with admission due to age and extent of pneumonia. Antibiotics will be ordered by hospitalist. Patient is lying comfortably in his room in [facility] and agrees with admisison. - Diagnoses Differential Diagnosis/HQI/PQRI: Positive: Bronchitis, CHF, Pneumonia, Pulmonary Embolism, Pulmonary Edema Provider Diagnoses: Pneumonia - Physician Notifications Discussed Care of Patient With: Sharon Buckner Time Discussed With Above Provider: 23:02 Instructed by Provider To: Admit As Inpatient - Admit patient due to age, recent travel and multifocal pneumonia seen on CXR Discharge ED - Sign-Out/Discharge Documenting (check all that apply): Patient Departure - Discharge Plan Condition: Fair Disposition: ADMITTED TO [facility] Referrals: Louie Vidales MD [Primary Care Provider] - - Billing Disposition and Condition Condition: FAIR Disposition: Admitted to [facility] - Attestation Statements Document Initiated by Gen: No
[2019-03-29 21:53] LABS: ABS Basophils 0.1 10^3/ul (0-0.2); ABS Eosinophils 0.1 10^3/ul (0-0.6); ABS Lymphocytes 0.8 10^3/ul (1.0-4.8); ABS Monocytes 0.4 10^3/ul (0-0.8); ABS Neutrophils 10.9 10^3/ul (1.5-7.7); Eosinophil % 1.2 %; Hematocrit 43 % (42-52); Hemoglobin 14.1 g/dL (14.0-18.0); Lymphocyte % 6.1 %; Mean Corpuscular HGB Conc 33 g/dL (31-36); Mean Corpuscular Hemoglobin 29 pg (27-31); Mean Corpuscular Volume 88 fL (80-94); Mean Platelet Volume 7.8 fL (7.4-10.4); Platelet Count 239 10^3/uL (150-450); Red Blood Count 4.88 10^6 /uL (4.18-5.48); Red Cell Distribution Width 15 % (10-15); White Blood Count 12.2 10^3/uL (3.5-10.8)
[2019-03-29 22:04] LABS: INR 1.48 (0.82-1.09)
[2019-03-29 22:10] LABS: Albumin/Globulin Ratio 1.1 (1-3); BUN/Creatinine Ratio 23.1 (8-20); C Reactive Protein 52.99 mg/L (<8.01); Calcium 8.7 mg/dL (8.6-10.3); EGFR African American 113.9 (>60); EGFR Non-African American 94.2 (>60); Globulin 3.5 g/dL (2-4); Potassium 4.1 mmol/L (3.5-5.0); Total Bilirubin 0.9 mg/dL (0.2-1.0); Total Protein 7.5 g/dL (6.4-8.9)
[2019-03-29 22:11] LABS: Troponin I 0.01 ng/mL (<0.04)
[2019-03-29] MEDS ORDERED: Azithromycin 500 mg/250 ml NS 500 MG/250 ML BAG IVPB ONE (23:36)
[2019-03-29] MEDS ORDERED: Acetaminophen TAB* 325 MG PO PRN (23:39)
[2019-03-29] MEDS ORDERED: NS 0.9% 500 ML* 500 ML IV ONE (23:50)
[2019-03-30 00:09] LABS: Magnesium 1.9 mg/dL (1.9-2.7)
[2019-03-30] MEDS ORDERED: cefTRIAXone(*) 1 GM in NS 0.9% 50 ML* 50 ML IVPB SCH (00:30)
[2019-03-30] MEDS ORDERED: Magnesium Sulfate 1 GM IV* 1 GM/100 ML BAG IV ONE (00:54)
--- NOTE | 2019-03-30 01:40 | HP ---
HISTORY AND PHYSICAL: DATE OF ADMISSION: 03/29/19 PRIMARY CARE PHYSICIAN: Dr. Louie Vidales. HEALTHCARE PROXY: Eric Estes, his son. CODE STATUS: Full. PRIMARY LANGUAGE: Quechua. The patient also speaks some Romansh. SOURCE: Most history obtained from patient who prefers that his granddaughter Kellie translate; her number is [phone]. CHIEF COMPLAINT: Subacute progressive cough, shortness of breath, and fevers. HISTORY OF PRESENT ILLNESS: Mr. Estes is an 88-year-old man with history of atrial fibrillation and BPH, also with remote history of prostate cancer, who is presenting with 2 to 3 days of worsening productive cough with yellow sputum , fevers, diaphoresis, and shortness of breath. His granddaughter Kellie is at the bedside and translates for the patient which is his preference and she also gives some history. She reports that the patient was recently in [place] visiting some of his children and he returned to [place] 3 days ago. He felt well during the journey and immediately after except for some cold-like symptoms. However, after 1 day in [place], he began experiencing cough that was increasing in frequency over the last couple of days and productive of yellow sputum. He reports chest pain and abdominal pain only when coughing and not at rest or on exertion. He has had decreased appetite, but no nausea or vomiting. He has not recorded his temperature at home, but when his granddaughter brought him to [facility] today, they reported a fever of 101.5. So, they sent him to the emergency room. The patient also has been diaphoretic but without chills. He reports generally feeling well and active except for symptoms noted above. In the emergency room, the patient was afebrile. He was noted to have very mild respiratory distress, so he was given a nebulizer treatment with resolution in his symptoms. He was asked to be admitted to Medicine for treatment of community acquired pneumonia. Of note, in Urgent Care, the patient had been given Tylenol, IV steroids, and nebulizer treatment. PAST MEDICAL HISTORY: 1. Atrial fibrillation, on anticoagulation. 2. Prostate cancer, status post prostatectomy, now with possible BPH. 3. Hemorrhoids. 4. Skin cancer. PAST SURGICAL HISTORY: 1. Prostatectomy. 2. Cataract extractions. HOME MEDICATIONS: 1. Xarelto 20 mg in the evening. 2. Tamsulosin 0.4 mg daily. 3. Finasteride 5 mg daily. 4. Multivitamin. 5. Ferrous sulfate 325 mg daily. 6. Cyanocobalamin 500 mcg daily. 7. MiraLAX 1 pocket daily as needed for constipation. ALLERGIES: No known drug allergies. FAMILY HISTORY: The patient's family history is largely unknown given poor medical care in [place], but they did live generally healthy life until old age. SOCIAL HISTORY: The patient lives with 2 of his children, including his son Eric who is his healthcare proxy. 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 He is quite active and can perform all ADLs independently. He smoked rarely in young adulthood and had occasional alcohol use, none recently and no recreational drugs. PHYSICAL EXAMINATION GENERAL: He is well-appearing elderly man in no acute distress. He is alert, interactive, and very pleasant. VITAL SIGNS: Temperature 98.6, heart rate 90s, blood pressure 142/66, respiratory rate 19, oxygen saturation 96% on room air. HEENT: With moist mucous membranes. OP clear. NECK: No JVD. Supple. LUNGS: With rales in mid lung frazier bilaterally. No wheeze or crackles. HEART: Irregularly irregular. No murmurs, gallops, or rubs. ABDOMEN: Soft, nontender, nondistended. EXTREMITIES: Warm, well perfused, without evidence of edema. DIAGNOSTIC STUDIES/LAB DATA: WBC 12.2 with neutrophils 89%. INR 1.48. Sodium 134 with normal BUN and creatinine. Lactate 1.2. CRP 53. BNP 212. Chest x-ray with possible right-sided pneumonia. EKG with atrial fibrillation, rate 80s with repolarization changes anteriorly. Largely unchanged change from prior EKG last year. ASSESSMENT AND PLAN: Mr. Estes is an 88-year-old man with atrial fibrillation, prostate cancer, status post resection, who is presenting with subacute and progressive fevers, productive cough, and shortness of breath. He was found with chest x-ray concerning for pneumonia. 1. Community-acquired pneumonia. We will initiate the patient on ceftriaxone and azithromycin. Blood cultures have been ordered. Urine antigens are pending. We will continue to monitor respiratory status closely. Of note, the patient has been given IV steroids in Urgent Care, but we will not continue these as he has no history of chronic obstructive pulmonary disease or other reactive airway disease. The patient has sepsis given his tachypnea, leukocytosis, tachycardia, and fever; however, he does not have evidence of severe sepsis at this time. 2. Benign prostatic hyperplasia. Continue home tamsulosin and finasteride. 3. Atrial fibrillation. Continue home rivaroxaban 20 mg in the evening. 4. DVT prophylaxis. The patient is on therapeutic anticoagulation. 5. Code status. Full code. TIME SPENT: Approximately 60 minutes was spent on admission of this patient, more than half of which was spent at bedside for interview and exam. [id number]/[facility] #: [id number] MTDD
[2019-03-30 08:51] LABS: Hematocrit 40 % (42-52); Hemoglobin 13.3 g/dL (14.0-18.0); Mean Corpuscular HGB Conc 34 g/dL (31-36); Mean Corpuscular Hemoglobin 29 pg (27-31); Mean Corpuscular Volume 88 fL (80-94); Platelet Count 212 10^3/uL (150-450); Red Blood Count 4.53 10^6 /uL (4.18-5.48); Red Cell Distribution Width 14 % (10-15)
[2019-03-30] MEDS ORDERED: Tamsulosin CAP* 0.4 MG PO SCH (09:00)
[2019-03-30] MEDS ORDERED: Finasteride TAB* 5 MG PO SCH (09:00)
[2019-03-30 09:53] LABS: BUN/Creatinine Ratio 26.4 (8-20); Calcium 8.1 mg/dL (8.6-10.3); EGFR African American 177.9 (>60); EGFR Non-African American 147.1 (>60); Magnesium 2.3 mg/dL (1.9-2.7); Potassium 3.9 mmol/L (3.5-5.0)
[2019-03-30] MEDS ORDERED: guaiFENesin ER TAB 600 MG PO SCH (10:00)
[2019-03-30] MEDS ORDERED: Benzocaine/Menthol LOZ* 1 LOZENGE PO PRN (11:21)
[2019-03-30 16:11] VITALS: BP 128/64
[2019-03-30] MEDS ORDERED: Rivaroxaban TAB(*) 20 MG TAB PO SCH (18:00)
[2019-03-30] MEDS ORDERED: Azithromycin TAB* 250 MG PO SCH (21:00)
--- NOTE | 2019-03-30 22:04 | DS ---
DISCHARGE SUMMARY: DATE OF ADMISSION: 03/29/19 DATE OF DISCHARGE: 03/30/19 PROVIDER: oJsefina Alanis NP ATTENDING PHYSICIAN: Dr. Miner.* (DICTATED BY JOSEFINA ALANIS NP) PRIMARY CARE PHYSICIAN: Louie Vidales MD HEALTHCARE PROXY: Eric Estes, which is his son. CODE STATUS: Full. PRIMARY DIAGNOSIS: Community-acquired pneumonia. SECONDARY DIAGNOSIS: Benign prostatic hyperplasia and atrial fibrillation. PROCEDURES: No procedures were done. STUDIES: As far as 03/29/19, chest x-ray showed no pulmonary abnormalities. On 03/29/19 EKG revealed AFib, probable lateral infarct which is old. PERTINENT LAB DATA: On 03/29/19, D-dimer 264, INR 1.64. Today, 03/30/19, creatinine 0.53, BUN and creatinine ratio 26.4, glucose 189, calcium 8.1 and hemoglobin 13.3, hematocrit 40. HISTORY OF PRESENT ILLNESS AND HOSPITAL COURSE: This is an 88-year-old male with past medical history significant for AFib and prostate cancer, presented to the ED on 03/29/19 with this subacute cough, shortness of breath and fevers, though chest x-ray showed no pleural abnormalities. Labs showed white blood cell count of 12.2, tachypneic and tachycardic with shortness of breath worse upon lying down. The patient considered to be septic. With the IV hydration, IV azithromycin and ceftriaxone, condition improved today with lessening of the shortness of breath. No fever or chills reported, though complaining of throat pain and difficulty with coughing up secretions. Able to maintain sats above 92 % on room air. Afebrile, normotensive today. Discharged to home with oral azithromycin, cefdinir, and Mucinex. REVIEW OF SYSTEMS: An 11-point system reviewed. Pertinent positives include throat pain. Pertinent negatives no chest pain or shortness of breath. PHYSICAL EXAMINATION: Again, this is an 88-year-old male with a past medical history significant for AFib and prostate cancer, presented to the ED on with subacute cough, shortness of breath and fevers, determined to have community- acquired pneumonia. General: No acute distress noted, well groomed. Eyes: Conjunctivae pink and moist. Extraocular muscles intact. PERRLA. HEENT: Oral mucosa is moist. Oropharynx is clear. Neck: No lymphadenopathy noted. Respiratory: Fine crackles to left lower and left mid lung frazier on room air. No wheezes noted. No accessory muscle use. Cardiovascular: S1, S2. Heart rate regular. No gallops, murmurs, or rubs appreciated. GI: Abdomen is soft, nontender with positive bowel sounds x4. Musculoskeletal: Able to move all extremities. Positive pedal pulses. Cap refill is less then 3 seconds. Muscle strength to bilateral upper and lower is 5/5. Skin: No open areas, no rashes or lesions noted. Neurological: No focal deficits appreciated. Psychiatric: The patient is alert and oriented x3 , pleasant and conversive. DISCHARGE PLAN: 1. Community-acquired pneumonia. The patient to continue on 4 more days of p.o. azithromycin and 6 more days of cefdinir and b.i.d. Mucinex for 1 week and followup with primary care physician. 2. BPH. The patient to continue on with tamsulosin, finasteride. 3. Atrial fibrillation. The patient to continue Xarelto, does not require beta - blockers at this time as it is rate controlled. MEDICATIONS: Home medications include: 1. Tamsulosin 0.4 mg p.o. q.a.m. 2. Xarelto 20 mg p.o. q.p.m. 3. Multivitamin 1 cap p.o. q.a.m. 4. MiraLAX 1 pack p.o. daily p.r.n. 5. Finasteride 5 mg p.o. daily. 6. Ferrous sulfate 325 mg p.o. q.a.m. 7. Cyanocobalamin 500 mcg p.o. q.a.m. New medications include: 1. Guaifenesin ER 600 mg p.o. b.i.d. 2. Cefdinir 300 mg p.o. b.i.d. x6 days. 3. Azithromycin 250 mg p.o. daily x4 more tabs. CONDITION UPON DISCHARGE: Stable. DISPOSITION: To home. TIME SPENT: About 60 minutes with 30 of it [id number]. JOSEFINA ALANIS, POWER TECHNICIAN [id number]/[facility] #: [id number] [facility]
--- NOTE | 2019-05-05 21:40 | HP ---
HISTORY AND PHYSICAL: DATE OF ADMISSION: 03/29/19 ADDENDUM: REVIEW OF SYSTEMS: A complete 10-point review of systems was performed and pertinent positives and negatives are listed in the HPI. [id number]/[facility] #: [id number] [facility]
== END 2019-03-30 16:30 | disposition home or self-care (01) ==
LOC: ED 20:26 → MED 23:39
PROVIDERS: ADMIT Internal Medicine; ATTEND Internal Medicine
DX: J18.9 Pneumonia, unspecified organism (principal); N40.0 Benign prostatic hyperplasia without lower urinary tract symptoms; I48.91 Unspecified atrial fibrillation; Z85.46 Personal history of malignant neoplasm of prostate; Z79.899 Other long term (current) drug therapy; Z79.01 Long term (current) use of anticoagulants; R06.02 Shortness of breath; K64.9 Unspecified hemorrhoids; Z85.828 Personal history of other malignant neoplasm of skin; R94.31 Abnormal electrocardiogram [ECG] [EKG]
CPT/HCPCS: 36415; 71045; 80048; 80053; 83605; 83735; 83880; 84484; 85025; 85027; 85379; 85610; 86140; 87040; 93005; 96365; 96367; 99284; A9270-GY; G0378; J0456; J0696; J3475

== ENCOUNTER 2019-03-31 04:52 | Inpatient (IN) | payer MEDICARE, MEDICAID ==
[2019-03-31] MEDS ORDERED: Albuterol/Ipratropium NEB.SOL* Albuterol 2.5 MG/Ipratropium 0.5 MG 3 ML INH ONE (05:08)
[2019-03-31] MEDS ORDERED: Albuterol 2.5 MG/3 ML NEB.SOL* (0.083%) INH ONE (05:29)
[2019-03-31] MEDS ORDERED: Azithromycin 500 mg/250 ml NS 500 MG/250 ML BAG IVPB ONE (05:30)
[2019-03-31] MEDS ORDERED: cefTRIAXone(*) 1 GM in NS 0.9% 50 ML* 50 ML IVPB ONE (05:32)
[2019-03-31 06:01] LABS: ABS Lymphocytes 3.1 10^3/ul (1.0-4.8); ABS Neutrophils 13.4 10^3/ul (1.5-7.7); Eosinophil % 0.2 %; Hematocrit 40 % (42-52); Hemoglobin 13.5 g/dL (14.0-18.0); Lymphocyte % 17.6 %; Mean Corpuscular HGB Conc 34 g/dL (31-36); Mean Corpuscular Hemoglobin 29 pg (27-31); Mean Corpuscular Volume 87 fL (80-94); Mean Platelet Volume 7.9 fL (7.4-10.4); Platelet Count 250 10^3/uL (150-450); Red Blood Count 4.61 10^6 /uL (4.18-5.48); Red Cell Distribution Width 15 % (10-15); White Blood Count 17.6 10^3/uL (3.5-10.8)
[2019-03-31 06:20] LABS: Albumin 3.6 g/dL (3.2-5.2); Albumin/Globulin Ratio 1.1 (1-3); BUN/Creatinine Ratio 28.8 (8-20); Calcium 8.8 mg/dL (8.6-10.3); EGFR African American 138.1 (>60); EGFR Non-African American 114.2 (>60); Globulin 3.3 g/dL (2-4); Potassium 4.1 mmol/L (3.5-5.0); Total Bilirubin 0.5 mg/dL (0.2-1.0); Total Protein 6.9 g/dL (6.4-8.9)
--- NOTE | 2019-03-31 06:34 | ED ---
Shortness of Breath - HPI Summary HPI Summary: This patient is an 88 year old M presenting to [facility] accompanied by son with a chief complaint of SOB since 03/30/19. Patient was previously seen in hospital on 03/30/19 for similar symptoms. Patients son states that he just got back from [place] on 03/29/19. Patient was admitted for recurrent pneumonia, discharged home on azithromycin and Cefdinir. Patient became more dyspneic, and had increased wheezing so family brought him back to the emergency department. Patient denies fever and PMHx of asthma. Patient reports PMHx of Afib and HTN which he takes Xarelto. No history of blood clots. Patient does not smoke. Of note patient is Niuean-speaking but understands Indonesian, and prefers son at bedside to translate for him. - History of Current Complaint Chief Complaint: EDShortnessOfBreath Time Seen by Provider: 03/31/19 04:56 Hx Obtained From: Patient, Family/Youth Development Specialist - Son Hx From Patient Unobtainable Due To: Other - language barrier Onset/Duration: Lasting Days - 03/30/19, Still Present Timing: Constant Current Severity: Severe Dyspnea At: Rest Associated Signs & Symptoms: Cough (Nonproductive), Wheezing Related History: Similar Episode - last seen 03/30/19 - Allergy/Home Medications Allergies/Adverse Reactions: Allergies Allergy/AdvReac Type Severity Reaction Status Date / Time No Known Allergies Allergy Verified 03/31/19 05:14 Home Medications: Home Medications Cyanocobalamin TAB* [Vitamin B12 TAB*] 500 mcg PO QAM 03/31/19 [History Confirmed 03/31/19] Cyclosporine 0.05% OPHTH (NF) [Restasis 0.05% OPHTH] 1 drop BOTH EYES BID [History Confirmed 03/31/19] Finasteride [Proscar] 5 mg PO DAILY 03/31/19 [History Confirmed 03/31/19] Polyethylene Glycol 3350* [Miralax*] 1 packet PO DAILY PRN 03/31/19 [History Confirmed 03/31/19] PMH/Surg Hx/FS Hx/Imm Hx Endocrine/Hematology History: Reports: Hx Anemia - iron and B12 deficiency Denies: Hx Diabetes, Hx Thyroid Disease Cardiovascular History: Reports: Hx Hypertension, Other Cardiovascular Problems/ Disorders - a fib Respiratory History: Reports: Other Respiratory Problems/Disorders Denies: Hx Asthma, Hx Chronic Obstructive Pulmonary Disease (COPD) GI History: Reports: Other GI Disorders - vit b12 defiency and iron , anemia Denies: Hx Ulcer History: Reports: Hx Benign Prostatic Hyperplasia, Other Problems/ Disorders - prostate cancer with prostatectomy Sensory History: Reports: Hx Contacts or Glasses - reading, Hx Hearing Aid, Hx Hearing Problem Opthamlomology History: Reports: Hx Contacts or Glasses - reading - Cancer History Cancer Type, Location and Year: prostate ca 2010 - Surgical History Surgery Procedure, Year, and Place: bladder 2006. APPENDECTOMY,. prostate surgery Hx Anesthesia Reactions: No Infectious Disease History: No Infectious Disease History: Reports: Traveled Outside the [place] in Last 30 Days - [place] Denies: Hx Clostridium Difficile, Hx Hepatitis, Hx Human Immunodeficiency Virus (HIV), Hx of Known/Suspected MRSA, Hx Shingles, Hx Tuberculosis, Hx Known/ Suspected VRE, Hx Known/Suspected VRSA, History Other Infectious Disease - Family History Known Family History: Negative: Cardiac Disease, Diabetes - Social History Alcohol Use: None Substance Use Type: Reports: None Substance Use Comment - Amount & Last Used: coca leaves Hx Tobacco Use: No Smoking Status (MU): Never Smoked Tobacco Review of Systems Negative: Fever Positive: Cough - no production All Other Systems Reviewed And Are Negative: Yes Physical Exam - Summary Physical Exam Summary: Constitutional: Elderly male, NAD Skin: Warm, Dry HENT: Normocephalic; Atraumatic Eyes: Conjunctiva normal Neck: Musculoskeletal ROM normal neck. (-) JVD, (-) Stridor, (-) Nuchal rigidity Cardio: Irregularly irregular, Heart sounds normal; Intact distal pulses; Radial pulses are 2+ and symmetric. (-) Murmur Pulmonary/Chest wall: Increased work of breathing with accessory muscle use, diffuse bilateral wheezing. Abd: Soft, (-) tenderness, (-) Distension, (-) Guarding, (-) Rebound Musculoskeletal: (-) Edema Lymph: (-) Cervical adenopathy Neuro: Alert, Oriented x3 Psych: Mood and affect Normal Triage Information Reviewed: Yes Vital Signs On Initial Exam: Initial Vitals Temp Pulse Resp BP Pulse Ox 98 F 68 26 176/100 96 03/31/19 04:58 03/31/19 04:58 03/31/19 04:58 03/31/19 04:58 03/31/19 04:58 Vital Signs Reviewed: Yes Diagnostics - Vital Signs Vital Signs Temp Pulse Resp BP Pulse Ox 03/31/19 06:03 85 13 157/78 99 03/31/19 06:00 92 24 97 03/31/19 05:57 88 20 98 03/31/19 05:30 76 23 140/67 95 03/31/19 05:13 106 24 99 03/31/19 05:01 75 27 97 03/31/19 05:00 84 24 97 03/31/19 04:58 98 F 77 28 176/100 96 - Laboratory Lab Results: Lab Results 03/31/19 03/31/19 Range/Units 05:49 05:49 WBC 17.6 H (3.5-10.8) 10^3/uL RBC 4.61 (4.18-5.48) 10^6 /uL Hgb 13.5 L (14.0-18.0) g/dL Hct 40 L (42-52) % MCV 87 (80-94) fL MCH 29 (27-31) pg MCHC 34 (31-36) g/dL RDW 15 (10-15) % Plt Count 250 (150-450) 10^3/uL MPV 7.9 (7.4-10.4) fL Neut % (Auto) 76.4 % Lymph % (Auto) 17.6 % Love % (Auto) 5.5 % Eos % (Auto) 0.2 % Baso % (Auto) 0.3 % Absolute Neuts (auto) 13.4 H (1.5-7.7) 10^3/ul Absolute Lymphs (auto) 3.1 (1.0-4.8) 10^3/ul Absolute Monos (auto) 1.0 H (0-0.8) 10^3/ul Absolute Eos (auto) 0.0 (0-0.6) 10^3/ul Absolute Basos (auto) 0.0 (0-0.2) 10^3/ul Absolute Nucleated RBC 0.0 10^3/ul Nucleated RBC % 0.0 Sodium 135 (135-145) mmol/L Potassium 4.1 (3.5-5.0) mmol/L Chloride 105 (101-111) mmol/L Carbon Dioxide 23 (22-32) mmol/L Anion Gap 7 (2-11) mmol/L BUN 19 (6-24) mg/dL Creatinine 0.66 L (0.67-1.17) mg/dL Est GFR ( Amer) 138.1 (>60) Est GFR (Non-Af Amer) 114.2 (>60) BUN/Creatinine Ratio 28.8 H (8-20) Glucose 141 H (70-100) mg/dL Calcium 8.8 (8.6-10.3) mg/dL Total Bilirubin 0.50 (0.2-1.0) mg/dL AST 34 (13-39) U/L ALT 24 (7-52) U/L Alkaline Phosphatase 143 H (34-104) U/L Total Protein 6.9 (6.4-8.9) g/dL Albumin 3.6 (3.2-5.2) g/dL Globulin 3.3 (2-4) g/dL Albumin/Globulin Ratio 1.1 (1-3) Result Diagrams: 03/31/19 05:49 03/31/19 05:49 Lab Statement: Any lab studies that have been ordered have been reviewed, and results considered in the medical decision making process. - Radiology Chest Xray Radiology Interpretation Completed By: ED Physician Summary of Radiographic Findings: CXR reveals, per ED Physician, no significant changes to prior 03/30/12. - EKG 0504 Cardiac Rate: Other Rate - 78 bpm EKG Rhythm: Atrial Fibrillation EKG Comparison: No Significant Change - 07/30/17 Summary of EKG Findings: Atrial Fibrilation at 78 bpm, no changes from 07/30/17 Course/Dx - Course Course Of Treatment: 88-year-old male with a history of atrial fibrillation on Xarelto recent pneumonia presents with increased work of breathing and wheezing. Physical examination w elderly male, increased work of breathing with accessory muscle use and wheezing bilaterally. Will give albuterol, recheck a chest x-ray to assess for infection, and check labs. Likely readmission for pneumonia. - Diagnoses Provider Diagnoses: Pneumonia Discharge ED - Sign-Out/Discharge Documenting (check all that apply): Patient Departure - admitted Patient Received Moderate/Deep Sedation with Procedure: No - Discharge Plan Condition: Stable Disposition: ADMITTED TO [facility] Referrals: Louie Vidales MD [Primary Care Provider] - - Billing Disposition and Condition Condition: STABLE Disposition: Admitted to [facility] - Attestation Statements Document Initiated by Adrienneibjaxson: Yes Documenting Scribe: Leana Redmond Provider For Whom Gen is Documenting (Include Credential): Carly Whiteside MD Scribe Attestation: Leana Ocasio , scribed for Carly Whiteside MD on 03/31/19 at 0743. Scribe Documentation Reviewed: Yes Provider Attestation: The documentation as recorded by the Leana marques accurately reflects the service I personally performed and the decisions made by , Carly Whiteside MD Status of Scribe Document: Viewed
[2019-03-31] MEDS ORDERED: Acetaminophen TAB* 325 MG PO PRN (08:31)
[2019-03-31] MEDS ORDERED: Al Hydrox/Mg Hydrox/Simet LIQ* 30 ML UDC PO PRN (08:31)
[2019-03-31] MEDS ORDERED: Albuterol/Ipratropium NEB.SOL* Albuterol 2.5 MG/Ipratropium 0.5 MG 3 ML INH PRN (08:58)
[2019-03-31] MEDS ORDERED: Azithromycin TAB* 250 MG PO SCH (09:00)
[2019-03-31] MEDS ORDERED: DOXYcycline IV* 100 MG in NS 0.9% 250 ML* 250 ML IVPB SCH (10:00)
[2019-03-31] MEDS ORDERED: NS 0.9% 1000 ML** 1,000 ML IV ONE (10:19)
[2019-03-31] MEDS: Tamsulosin CAP* 0.4 MG PO SCH (10:36)
[2019-03-31] MEDS: guaiFENesin ER TAB 600 MG PO SCH ×2 (10:36→20:33)
[2019-03-31] MEDS: Docusate CAP* 100 MG PO SCH ×2 (10:36→20:33)
[2019-03-31] MEDS: Cyanocobalamin TAB* 500 MCG PO SCH (10:36)
[2019-03-31] MEDS: Ferrous Sulfate TAB* 325 MG PO SCH (10:36)
[2019-03-31] MEDS: Finasteride TAB* 5 MG PO SCH (10:36)
[2019-03-31] MEDS: methylPREDNISolone SOD 40 MG* 1 ML VIAL IV SCH ×2 (10:36→20:34)
[2019-03-31 10:37] LABS: C Reactive Protein 26.49 mg/L (<8.01)
[2019-03-31 11:12] LABS: Influenza A Molecular NEGATIVE (Negative); Influenza B Molecular NEGATIVE (Negative)
[2019-03-31] MEDS: Cefepime 1 GM in Dextrose(*) 1 GM/50 ML BAG IV SCH ×2 (12:43→22:24)
[2019-03-31] MEDS: DOXYcycline IV* 100 MG in NS 0.9% 250 ML* 250 ML IVPB SCH ×2 (12:57→23:15)
--- NOTE | 2019-03-31 13:28 | HP ---
HISTORY AND PHYSICAL: DATE OF ADMISSION: 03/31/19 PRIMARY CARE PROVIDER: Dr. Vidales. CHIEF COMPLAINT: Wheezing and shortness of breath. HISTORY OF PRESENT ILLNESS: Joe Estes is an 88-year-old male who just recently came back from [place] approximately 3 or 4 days ago. His family is Congolese speaking and his daughter who has been at bedside is translating. He was diagnosed with pneumonia treated overnight at our facility, discharged yesterday since he felt well. Of note, before he was admitted with pneumonia to our facility, he was at [facility] where he got steroids in addition to antibiotics. At our facility while overnight, he only got antibiotics including azithromycin and ceftriaxone. He was discharged with cefdinir and azithromycin. He has history of reactive airway disease and used inhalers 3 years ago. Currently, he is significantly wheezing. His chest x- ray is still unchanged and does not show a significant infiltrate. He is going to be placed on inpatient admission expected for the patient to stay 2 or more days. PAST MEDICAL HISTORY: 1. Atrial fibrillation, on anticoagulation. 2. Prostate cancer, status post prostatectomy 3. History of BPH. 4. Hemorrhoids. 5. Patient has history of reactive airway disease and had to used inhalers in the past. PAST SURGICAL HISTORY: 1. History of excision of skin cancer. 2. History of cataract surgery. MEDICATIONS: Medications at home include: 1. Azithromycin 250 mg daily. 2. Cefdinir 300 mg b.i.d. 3. MiraLAX 1 packet daily p.r.n. 4. Vitamin B12 of 500 mcg daily. 5. Finasteride 5 mg daily. 6. Ferrous sulfate 325 mg daily. 7. Flomax 0.4 mg daily. 8. Restasis eyedrop 0.05% 1 drop both eyes b.i.d. 9. Mucinex ER 600 mg b.i.d. p.r.n. 10. Xarelto 20 mg daily. ALLERGIES: No known drug allergies. FAMILY HISTORY: Both parents of "old age" in [place]. SOCIAL HISTORY: The patient is primarily Congolese speaking, originally from [place]. His son, Eric is his healthcare proxy. The patient denies any smoking, alcohol or drug use. 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 PHYSICAL EXAMINATION GENERAL: The patient is a pleasant 88-year-old male who is in no acute distress. The patient is alert and oriented x3. VITAL SIGNS: Blood pressure of 164/71, heart rate of 75 and irregular, respiratory rate 27, oxygen saturation 98% on 2 L of oxygen nasal cannula and temperature of 98.0. HEENT: Head is atraumatic, normocephalic. Eyes: Pupils are equal and reactive to light and accommodation. Oropharynx is clear. Mucosa moist. NECK: Supple. No JVD. No bruit bilaterally. RESPIRATORY: Diffuse wheezes and rhonchi bilaterally. CARDIOVASCULAR: Irregularly irregular rhythm. No murmur. ABDOMEN: Soft, nontender. Bowel sounds are present in all 4 quadrants. EXTREMITIES: There is no edema. Pulses are +2 bilaterally. There is no clubbing or cyanosis. NEUROLOGICAL: On neuro evaluation, speech is clear. Cranial nerves II through XII grossly intact. Motor strength is 5/5 bilaterally. DIAGNOSTIC STUDIES/LAB DATA: White blood cell count 17.6, hemoglobin of 13.5, hematocrit 40, and platelets of 250. The neutrophils are 13.4, which indicate some left shift. INR was 1.48, obtained 2 days ago. Sodium of 135, potassium 4.1, chloride 105, carbon dioxide 23, BUN 19, creatinine 0.16. Liver function tests showed elevated alkaline phosphatase of 143. The patient's EKG showed atrial fibrillation with a heart rate of 70 beats per minute with intraventricular conduction delay, QT of 488. Microbiology studies from 03/29/19 were negative blood cultures. Portable chest x-ray, Impression: "No active cardiopulmonary disease." ASSESSMENT AND PLAN: 1. In regards to the patient's pneumonia, at this point, the patient appears to have significant bronchospasm. It is possible that the IV steroids that he got at [facility] couple of days ago carried him through his 24 hours of admission and he looked very good and then when he went home and he did not get any further steroids that worsened. The patient has history of reactive airway disease and used inhalers in the past. At this point, the patient is going to be placed DuoNeb and IV Solu-Medrol. I will also change out antibiotics. He is going to be placed on cefepime. Due to QT prolongation, the azithromycin is going to be held and the patient is going to be placed on doxycycline. Urine Legionella and Strep pneumo antigens are going to be checked. I will not institute any further intravenous hydration for the time being. The patient's lactic acid was 1.2 two days ago and today has not been checked yet and is going to be drawn. 2. In regards to the patient's atrial fibrillation, it is rate controlled and outpatient medications are going to be continued including Xarelto. 3. For DVT prophylaxis, the patient is going to be continued on Xarelto. 4. The patient's code status is full. His surrogate is his son. TIME SPENT: Approximately 55 minutes were spent in admission of this patient, more than half time was spent face to face with the patient during the interview and physical exam. [id number]/[facility] #: [id number] NINO
[2019-03-31] MEDS: Albuterol/Ipratropium NEB.SOL* Albuterol 2.5 MG/Ipratropium 0.5 MG 3 ML INH SCH ×2 (14:56→19:29)
--- NOTE | 2019-03-31 15:39 | PN ---
Sepsis Event Evaluation Date of Evaluation: 03/31/19 Time of Evaluation: 14:30 Current Stage of Sepsis: Severe Sepsis Vital Signs - Last 12 Hours: Vital Signs - 12 hr Temp Pulse Resp BP Pulse Ox 03/31/19 14:59 67 18 96 03/31/19 10:50 61 12 100 03/31/19 09:37 98 F 63 16 157/90 98 03/31/19 08:33 83 27 164/71 98 03/31/19 08:03 84 21 159/76 96 03/31/19 08:00 76 23 95 03/31/19 07:33 94 25 154/82 93 03/31/19 07:03 105 24 136/73 92 03/31/19 07:00 113 24 93 03/31/19 06:33 117 24 145/69 93 03/31/19 06:03 85 13 157/78 99 03/31/19 06:00 92 24 97 03/31/19 05:57 88 20 98 03/31/19 05:30 76 23 140/67 95 03/31/19 05:13 106 24 99 03/31/19 05:01 75 27 97 03/31/19 05:00 84 24 97 03/31/19 04:58 98 F 77 28 176/100 96 Lactic Acid: 03/31/19 03/31/19 09:38 13:28 Lactic Acid 3.8 H* 2.8 H* - Cardiopulmonary Exam Capillary Refill: Immediate Respiratory: Symmetrical Chest Expansion and Respiratory Effort, - - wheezes b/ l still noted - Peripheral Pulse Exam Radial Pulses: Bilateral Normal Pedal Pulses: Bilateral Normal - Skin Exam Skin Exam: Normal Turgor, Unremarkable - Sai Coma Scale Best Eye Response: 4 - Spontaneous Best Motor Response: 6 - Obeys Commands Best Verbal Response: 5 - Oriented - cont gentle IVF, lactic acid trending down , hemdynamically stable Coma Scale Total: 15 Assess/Plan/Problems-Billing Assessment:
[2019-03-31] MEDS: Rivaroxaban TAB(*) 20 MG TAB PO SCH (17:07)
[2019-03-31] MEDS: Polyethylene Glycol 3350* 17 GM PACKET PO PRN (17:07)
[2019-04-01] MEDS: Albuterol/Ipratropium NEB.SOL* Albuterol 2.5 MG/Ipratropium 0.5 MG 3 ML INH SCH ×5 (02:12→23:10)
[2019-04-01 05:34] LABS: ABS Lymphocytes 0.6 10^3/ul (1.0-4.8); ABS Monocytes 0.2 10^3/ul (0-0.8); ABS Neutrophils 6.5 10^3/ul (1.5-7.7); Hematocrit 37 % (42-52); Hemoglobin 12.8 g/dL (14.0-18.0); Lymphocyte % 8.5 %; Mean Corpuscular HGB Conc 34 g/dL (31-36); Mean Corpuscular Hemoglobin 30 pg (27-31); Mean Corpuscular Volume 87 fL (80-94); Platelet Count 224 10^3/uL (150-450); Red Blood Count 4.31 10^6 /uL (4.18-5.48); Red Cell Distribution Width 15 % (10-15); White Blood Count 7.3 10^3/uL (3.5-10.8)
[2019-04-01 05:52] LABS: BUN/Creatinine Ratio 26.9 (8-20); Calcium 8.4 mg/dL (8.6-10.3); EGFR African American 181.9 (>60); EGFR Non-African American 150.3 (>60); Potassium 4.1 mmol/L (3.5-5.0)
[2019-04-01] MEDS: Ferrous Sulfate TAB* 325 MG PO SCH (09:57)
[2019-04-01] MEDS: Docusate CAP* 100 MG PO SCH ×2 (09:57→21:05)
[2019-04-01] MEDS: Cyanocobalamin TAB* 500 MCG PO SCH (09:57)
[2019-04-01] MEDS: Tamsulosin CAP* 0.4 MG PO SCH (09:57)
[2019-04-01] MEDS: guaiFENesin ER TAB 600 MG PO SCH ×2 (09:57→21:05)
[2019-04-01] MEDS: Finasteride TAB* 5 MG PO SCH (09:58)
[2019-04-01] MEDS: methylPREDNISolone SOD 40 MG* 1 ML VIAL IV SCH ×2 (10:32→21:05)
[2019-04-01] MEDS: Cefepime 1 GM in Dextrose(*) 1 GM/50 ML BAG IV SCH ×2 (11:53→23:00)
--- NOTE | 2019-04-01 12:44 | PN ---
Subjective Date of Service: 04/01/19 Interval History: Pt feels better today, but still c/o significant wheezing and cough Objective Active Medications: Acetaminophen (Tylenol Tab*) 650 mg PO Q4H PRN PRN Reason: PAIN-MILD/TEMP >/= 100.4 Al Hydrox/Mg Hydrox/Simethicone (Maalox Plus*) 30 ml PO Q6H PRN PRN Reason: INDIGESTION Albuterol/Ipratropium (Duoneb (Albuterol 2.5 Mg/Ipratropium 0.5 Mg)) 1 neb INH Q4H PRN PRN Reason: SOB/WHEEZING Last Admin: 03/31/19 10:48 Dose: 1 neb Albuterol/Ipratropium (Duoneb (Albuterol 2.5 Mg/Ipratropium 0.5 Mg)) 1 neb INH [id number] AWAKE [facility] Last Admin: 04/01/19 07:37 Dose: 1 neb Cyanocobalamin (Vitamin B12 Tab*) 500 mcg PO QAM [facility] Last Admin: 04/01/19 09:57 Dose: 500 mcg Docusate Sodium (Colace Cap*) 100 mg PO BID [facility] Last Admin: 04/01/19 09:57 Dose: 100 mg Ferrous Sulfate (Ferrous Sulfate Tab*) 325 mg PO QAM [facility] Last Admin: 04/01/19 09:57 Dose: 325 mg Finasteride (Proscar Tab*) 5 mg PO DAILY [facility] Last Admin: 04/01/19 09:58 Dose: 5 mg Guaifenesin (Mucinex*) 600 mg PO BID [facility] Last Admin: 04/01/19 09:57 Dose: 600 mg Cefepime HCl (Maxipime 1 Gm In Dextrose Duplex (*)) 1 gm in 50 mls @ 100 mls/ hr IV Q12H [facility] Last Admin: 04/01/19 11:53 Dose: 100 mls/hr Doxycycline Hyclate 100 mg/ (Sodium Chloride) 250 mls @ 250 mls/hr IVPB 1130, 2330 [facility] Last Admin: 03/31/19 23:15 Dose: 250 mls/hr Methylprednisolone Sodium Succinate (Solu-Medrol 40 Mg) 40 mg IV Q12H [facility] Last Admin: 04/01/19 10:32 Dose: 40 mg Polyethylene Glycol/Electrolytes (Miralax*) 17 gm PO DAILY PRN PRN Reason: CONSTIPATION Last Admin: 03/31/19 17:07 Dose: 17 gm Rivaroxaban (Xarelto(*)) 20 mg PO QPM [facility] Last Admin: 03/31/19 17:07 Dose: 20 mg Tamsulosin HCl (Flomax Cap*) 0.4 mg PO QAM [facility] Last Admin: 04/01/19 09:57 Dose: 0.4 mg Vital Signs - 8 hr 04/01/19 04/01/19 07:15 07:38 Temperature 97.6 F Pulse Rate 64 78 Respiratory 25 18 Rate Blood Pressure 149/75 (mmHg) O2 Sat by Pulse 99 98 Oximetry Oxygen Devices in Use Now: None Appearance: 88 yo m in nAD, AAOx3 Eyes: No Scleral Icterus, PERRLA Ears/Nose/Mouth/Throat: NL Teeth, Lips, Gums, Mucous Membranes Moist Neck: NL Appearance and Movements; NL JVP, Trachea Midline Respiratory: - - diffuse wheezes b/l Cardiovascular: NL Sounds; No Murmurs; No JVD, - - irregular Abdominal: NL Sounds; No Tenderness; No Distention, No Hepatosplenomegaly Lymphatic: No Cervical Adenopathy Extremities: No Edema, No Clubbing, Cyanosis Skin: No Rash or Ulcers, No Nodules or Sclerosis Neurological: NL Muscle Strength and Tone Result Diagrams: 04/01/19 04:59 04/01/19 04:59 Additional Lab and Data: Lab Results 03/31/19 03/31/19 Range/Units 05:49 05:49 WBC 17.6 H (3.5-10.8) 10^3/uL RBC 4.61 (4.18-5.48) 10^6 /uL Hgb 13.5 L (14.0-18.0) g/dL Hct 40 L (42-52) % MCV 87 (80-94) fL MCH 29 (27-31) pg MCHC 34 (31-36) g/dL RDW 15 (10-15) % Plt Count 250 (150-450) 10^3/uL MPV 7.9 (7.4-10.4) fL Neut % (Auto) 76.4 % Lymph % (Auto) 17.6 % [place] % (Auto) 5.5 % Eos % (Auto) 0.2 % Baso % (Auto) 0.3 % Absolute Neuts (auto) 13.4 H (1.5-7.7) 10^3/ul Absolute Lymphs (auto) 3.1 (1.0-4.8) 10^3/ul Absolute Monos (auto) 1.0 H (0-0.8) 10^3/ul Absolute Eos (auto) 0.0 (0-0.6) 10^3/ul Absolute Basos (auto) 0.0 (0-0.2) 10^3/ul Absolute Nucleated RBC 0.0 10^3/ul Nucleated RBC % 0.0 Sodium 135 (135-145) mmol/L Potassium 4.1 (3.5-5.0) mmol/L Chloride 105 (101-111) mmol/L Carbon Dioxide 23 (22-32) mmol/L Anion Gap 7 (2-11) mmol/L BUN 19 (6-24) mg/dL Creatinine 0.66 L (0.67-1.17) mg/dL Est GFR ( Amer) 138.1 (>60) Est GFR (Non-Af Amer) 114.2 (>60) BUN/Creatinine Ratio 28.8 H (8-20) Glucose 141 H (70-100) mg/dL Calcium 8.8 (8.6-10.3) mg/dL Total Bilirubin 0.50 (0.2-1.0) mg/dL AST 34 (13-39) U/L ALT 24 (7-52) U/L Alkaline Phosphatase 143 H (34-104) U/L Total Protein 6.9 (6.4-8.9) g/dL Albumin 3.6 (3.2-5.2) g/dL Globulin 3.3 (2-4) g/dL Albumin/Globulin Ratio 1.1 (1-3) Microbiology and Other Data: Microbiology 03/31/19 09:25 Legionella Urinary Antigen - Final Urine Negative Legionella Antigen Streptococcus pneumoniae Ag Screen - Final Negative S. pneumo Antigen Assess/Plan/Problems-Billing Assessment: 88 yo M with h/o a. fib readmitted for pneumonia with bronchospasm - Patient Problems (1) Pneumonia Comment: cont Doxy/Ceftriaxone Pneumonia wirh severe sepsis at admission Bronchospasm: cont Solu Medrol and duonebs. 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 Still in significant bronchospasm-will not titrate steroids. will order flutter valve (2) Afib Comment: - Rate is controlled without rate control agents - cont Xarelto (3) DVT prophylaxis Comment: Xarelto Status and Disposition: inpatient
[2019-04-01] MEDS: DOXYcycline IV* 100 MG in NS 0.9% 250 ML* 250 ML IVPB SCH ×2 (13:26→23:39)
[2019-04-01] MEDS: Rivaroxaban TAB(*) 20 MG TAB PO SCH (18:24)
[2019-04-02] MEDS: Albuterol/Ipratropium NEB.SOL* Albuterol 2.5 MG/Ipratropium 0.5 MG 3 ML INH SCH ×3 (07:17→18:59)
[2019-04-02] MEDS: methylPREDNISolone SOD 40 MG* 1 ML VIAL IV SCH ×2 (10:04→21:24)
[2019-04-02] MEDS: Tamsulosin CAP* 0.4 MG PO SCH (10:04)
[2019-04-02] MEDS: guaiFENesin ER TAB 600 MG PO SCH ×2 (10:05→21:24)
[2019-04-02] MEDS: Cyanocobalamin TAB* 500 MCG PO SCH (10:05)
[2019-04-02] MEDS: Ferrous Sulfate TAB* 325 MG PO SCH (10:05)
[2019-04-02] MEDS: Finasteride TAB* 5 MG PO SCH (10:05)
[2019-04-02] MEDS: Docusate CAP* 100 MG PO SCH ×3 (10:05→21:24)
--- NOTE | 2019-04-02 10:27 | PN ---
Subjective Date of Service: 04/02/19 Interval History: Pt is convinced that he has a part of his tooth in his throat that causes him to wheeze and cough. He stated that recently had some dental work done and the dentist was "drilling a lot". He has no problems swallowing and food intake had been good. Still wheezing and coughing Objective Active Medications: Acetaminophen (Tylenol Tab*) 650 mg PO Q4H PRN PRN Reason: PAIN-MILD/TEMP >/= 100.4 Al Hydrox/Mg Hydrox/Simethicone (Maalox Plus*) 30 ml PO Q6H PRN PRN Reason: INDIGESTION Albuterol/Ipratropium (Duoneb (Albuterol 2.5 Mg/Ipratropium 0.5 Mg)) 1 neb INH Q4H PRN PRN Reason: SOB/WHEEZING Last Admin: 03/31/19 10:48 Dose: 1 neb Albuterol/Ipratropium (Duoneb (Albuterol 2.5 Mg/Ipratropium 0.5 Mg)) 1 neb INH [id number] AWAKE [facility] Last Admin: 04/02/19 07:17 Dose: 1 neb Cyanocobalamin (Vitamin B12 Tab*) 500 mcg PO QAM [facility] Last Admin: 04/02/19 10:05 Dose: 500 mcg Docusate Sodium (Colace Cap*) 100 mg PO BID [facility] Last Admin: 04/02/19 10:05 Dose: 100 mg Ferrous Sulfate (Ferrous Sulfate Tab*) 325 mg PO QAM [facility] Last Admin: 04/02/19 10:05 Dose: 325 mg Finasteride (Proscar Tab*) 5 mg PO DAILY [facility] Last Admin: 04/02/19 10:05 Dose: 5 mg Guaifenesin (Mucinex*) 600 mg PO BID [facility] Last Admin: 04/02/19 10:05 Dose: 600 mg Cefepime HCl (Maxipime 1 Gm In Dextrose Duplex (*)) 1 gm in 50 mls @ 100 mls/ hr IV Q12H [facility] Last Admin: 04/01/19 23:00 Dose: 100 mls/hr Doxycycline Hyclate 100 mg/ (Sodium Chloride) 250 mls @ 250 mls/hr IVPB 1130, 2330 [facility] Last Admin: 04/01/19 23:39 Dose: 250 mls/hr Methylprednisolone Sodium Succinate (Solu-Medrol 40 Mg) 40 mg IV Q12H [facility] Last Admin: 04/02/19 10:04 Dose: 40 mg Polyethylene Glycol/Electrolytes (Miralax*) 17 gm PO DAILY PRN PRN Reason: CONSTIPATION Last Admin: 03/31/19 17:07 Dose: 17 gm Rivaroxaban (Xarelto(*)) 20 mg PO QPM [facility] Last Admin: 04/01/19 18:24 Dose: 20 mg Tamsulosin HCl (Flomax Cap*) 0.4 mg PO QAM [facility] Last Admin: 04/02/19 10:04 Dose: 0.4 mg Vital Signs - 8 hr 04/02/19 04/02/19 04/02/19 03:57 07:15 07:19 Temperature 98.2 F 97.8 F Pulse Rate 73 81 62 Respiratory 18 22 14 Rate Blood Pressure 146/44 151/87 (mmHg) O2 Sat by Pulse 97 97 97 Oximetry 04/02/19 07:45 Temperature Pulse Rate Respiratory 20 Rate Blood Pressure (mmHg) O2 Sat by Pulse Oximetry Oxygen Devices in Use Now: None Appearance: 88 yo M in NAD, aAOx3 Eyes: No Scleral Icterus, PERRLA Ears/Nose/Mouth/Throat: NL Teeth, Lips, Gums, Mucous Membranes Moist, - - oropharynx clear with slight injection Neck: NL Appearance and Movements; NL JVP, Trachea Midline, - - scant wheezing over ascultation of neck noted , expiratory, no stridor Respiratory: - - diffuse b/l wheezes Cardiovascular: NL Sounds; No Murmurs; No JVD, - - irregular Abdominal: NL Sounds; No Tenderness; No Distention Lymphatic: No Cervical Adenopathy Extremities: No Edema, No Clubbing, Cyanosis Skin: No Rash or Ulcers, No Nodules or Sclerosis Neurological: Alert and Oriented x 3, NL Muscle Strength and Tone Result Diagrams: 04/01/19 04:59 04/01/19 04:59 Additional Lab and Data: Lab Results 03/31/19 03/31/19 Range/Units 05:49 05:49 WBC 17.6 H (3.5-10.8) 10^3/uL RBC 4.61 (4.18-5.48) 10^6 /uL Hgb 13.5 L (14.0-18.0) g/dL Hct 40 L (42-52) % MCV 87 (80-94) fL MCH 29 (27-31) pg MCHC 34 (31-36) g/dL RDW 15 (10-15) % Plt Count 250 (150-450) 10^3/uL MPV 7.9 (7.4-10.4) fL Neut % (Auto) 76.4 % Lymph % (Auto) 17.6 % [place] % (Auto) 5.5 % Eos % (Auto) 0.2 % Baso % (Auto) 0.3 % Absolute Neuts (auto) 13.4 H (1.5-7.7) 10^3/ul Absolute Lymphs (auto) 3.1 (1.0-4.8) 10^3/ul Absolute Monos (auto) 1.0 H (0-0.8) 10^3/ul Absolute Eos (auto) 0.0 (0-0.6) 10^3/ul Absolute Basos (auto) 0.0 (0-0.2) 10^3/ul Absolute Nucleated RBC 0.0 10^3/ul Nucleated RBC % 0.0 Sodium 135 (135-145) mmol/L Potassium 4.1 (3.5-5.0) mmol/L Chloride 105 (101-111) mmol/L Carbon Dioxide 23 (22-32) mmol/L Anion Gap 7 (2-11) mmol/L BUN 19 (6-24) mg/dL Creatinine 0.66 L (0.67-1.17) mg/dL Est GFR ( Amer) 138.1 (>60) Est GFR (Non-Af Amer) 114.2 (>60) BUN/Creatinine Ratio 28.8 H (8-20) Glucose 141 H (70-100) mg/dL Calcium 8.8 (8.6-10.3) mg/dL Total Bilirubin 0.50 (0.2-1.0) mg/dL AST 34 (13-39) U/L ALT 24 (7-52) U/L Alkaline Phosphatase 143 H (34-104) U/L Total Protein 6.9 (6.4-8.9) g/dL Albumin 3.6 (3.2-5.2) g/dL Globulin 3.3 (2-4) g/dL Albumin/Globulin Ratio 1.1 (1-3) Microbiology and Other Data: Microbiology 03/31/19 09:25 Legionella Urinary Antigen - Final Urine Negative Legionella Antigen Streptococcus pneumoniae Ag Screen - Final Negative S. pneumo Antigen Assess/Plan/Problems-Billing Assessment: 88 yo M with h/o a. fib readmitted for pneumonia with bronchospasm - Patient Problems (1) Pneumonia Comment: cont Doxy/Cefepime Pneumonia wirh severe sepsis at admission Bronchospasm: cont Solu Medrol and duonebs. 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 Still in significant bronchospasm-will not titrate steroids. cont flutter valve Pt c/o a foreign body sensation in his throat. I suspect that this is related to bronchospasm , but if he had tooth fragmens/metal from his bridge " stuck in his throat" -they would be radioopaque. will get XRay of neck to reassure pt. (2) Afib Comment: - Rate is controlled without rate control agents - cont Xarelto (3) DVT prophylaxis Comment: Xarelto Status and Disposition: inpatient
[2019-04-02] MEDS: Cefepime 1 GM in Dextrose(*) 1 GM/50 ML BAG IV SCH ×2 (12:04→23:00)
[2019-04-02] MEDS: DOXYcycline IV* 100 MG in NS 0.9% 250 ML* 250 ML IVPB SCH ×2 (13:11→23:41)
[2019-04-02] MEDS ORDERED: Polyethylene Glycol 3350* 17 GM PACKET PO PRN (13:44)
[2019-04-02] MEDS ORDERED: Senna TAB 8.6 mg* TAB PO PRN (13:44)
[2019-04-02] MEDS ORDERED: Magnesium Hydroxide LIQ* 30 ML UDC PO PRN (13:44)
[2019-04-02] MEDS: Rivaroxaban TAB(*) 20 MG TAB PO SCH (17:09)
[2019-04-02] MEDS: Polyethylene Glycol 3350* 17 GM PACKET PO PRN (18:04)
[2019-04-02] MEDS: Magnesium Hydroxide LIQ* 30 ML UDC PO SCH (21:24)
[2019-04-03] MEDS: Albuterol/Ipratropium NEB.SOL* Albuterol 2.5 MG/Ipratropium 0.5 MG 3 ML INH SCH ×2 (01:26→07:03)
[2019-04-03] MEDS: Polyethylene Glycol 3350* 17 GM PACKET PO PRN (07:01)
[2019-04-03] MEDS: Polyethylene Glycol 3350* 17 GM PACKET PO SCH (09:07)
[2019-04-03] MEDS: Docusate CAP* 100 MG PO SCH ×4 (09:54→19:59)
[2019-04-03] MEDS: Cyanocobalamin TAB* 500 MCG PO SCH (09:54)
[2019-04-03] MEDS: Finasteride TAB* 5 MG PO SCH (09:55)
[2019-04-03] MEDS: guaiFENesin ER TAB 600 MG PO SCH ×2 (09:55→19:59)
[2019-04-03] MEDS: Ferrous Sulfate TAB* 325 MG PO SCH (09:55)
[2019-04-03] MEDS: Tamsulosin CAP* 0.4 MG PO SCH (09:55)
[2019-04-03] MEDS: Magnesium Hydroxide LIQ* 30 ML UDC PO SCH ×2 (10:02→19:59)
[2019-04-03] MEDS: methylPREDNISolone SOD 40 MG* 1 ML VIAL IV SCH (10:05)
--- NOTE | 2019-04-03 11:18 | PN ---
Subjective Date of Service: 04/03/19 Interval History: Pt feels well, still c/o wheezing in "his throat" and demonstrates wheezing on forced expiration in upper neck, that resolves with relaxed breathing swallowing uncomfortable for saliva but OK for solids Objective Active Medications: Acetaminophen (Tylenol Tab*) 650 mg PO Q4H PRN PRN Reason: PAIN-MILD/TEMP >/= 100.4 Al Hydrox/Mg Hydrox/Simethicone (Maalox Plus*) 30 ml PO Q6H PRN PRN Reason: INDIGESTION Albuterol/Ipratropium (Duoneb (Albuterol 2.5 Mg/Ipratropium 0.5 Mg)) 1 neb INH Q4H PRN PRN Reason: SOB/WHEEZING Last Admin: 03/31/19 10:48 Dose: 1 neb Cyanocobalamin (Vitamin B12 Tab*) 500 mcg PO QAM [facility] Last Admin: 04/03/19 09:54 Dose: 500 mcg Docusate Sodium (Colace Cap*) 100 mg PO BID [facility] Last Admin: 04/03/19 09:54 Dose: 100 mg Docusate Sodium (Colace Cap*) 100 mg PO BID [facility] Last Admin: 04/03/19 10:19 Dose: Not Given Ferrous Sulfate (Ferrous Sulfate Tab*) 325 mg PO QAM [facility] Last Admin: 04/03/19 09:55 Dose: 325 mg Finasteride (Proscar Tab*) 5 mg PO DAILY [facility] Last Admin: 04/03/19 09:55 Dose: 5 mg Guaifenesin (Mucinex*) 600 mg PO BID [facility] Last Admin: 04/03/19 09:55 Dose: 600 mg Cefepime HCl (Maxipime 1 Gm In Dextrose Duplex (*)) 1 gm in 50 mls @ 100 mls/ hr IV Q12H [facility] Last Admin: 04/02/19 23:00 Dose: 100 mls/hr Doxycycline Hyclate 100 mg/ (Sodium Chloride) 250 mls @ 250 mls/hr IVPB 1130, 2330 [facility] Last Admin: 04/02/19 23:41 Dose: 250 mls/hr Magnesium Hydroxide (Milk Of Magnesia Liq*) 30 ml PO BID [facility] Last Admin: 04/03/19 10:02 Dose: 30 ml Magnesium Hydroxide (Milk Of Magnesia Liq*) 30 ml PO BID PRN PRN Reason: CONSTIPATION Polyethylene Glycol/Electrolytes (Miralax*) 17 gm PO DAILY [facility] Last Admin: 04/03/19 09:07 Dose: Not Given Prednisone (Deltasone Tab*) 60 mg PO DAILY [facility] Rivaroxaban (Xarelto(*)) 20 mg PO QPM [facility] Last Admin: 04/02/19 17:09 Dose: 20 mg Senna (Senokot 8.6 Mg Tab*) 1 tab PO BEDTIME PRN PRN Reason: CONSTIPATION Tamsulosin HCl (Flomax Cap*) 0.4 mg PO QAM [facility] Last Admin: 04/03/19 09:55 Dose: 0.4 mg Vital Signs - 8 hr 04/03/19 04/03/19 04/03/19 03:21 07:03 07:15 Temperature 98.0 F 98.5 F Pulse Rate 59 81 53 Respiratory 20 16 19 Rate Blood Pressure 142/61 146/71 (mmHg) O2 Sat by Pulse 96 97 95 Oximetry 04/03/19 04/03/19 07:51 08:00 Temperature Pulse Rate Respiratory 18 18 Rate Blood Pressure (mmHg) O2 Sat by Pulse Oximetry Oxygen Devices in Use Now: None Appearance: 88 yo M in nAD, aAOx3 Eyes: No Scleral Icterus, PERRLA Ears/Nose/Mouth/Throat: NL Teeth, Lips, Gums, Mucous Membranes Moist Neck: NL Appearance and Movements; NL JVP, Trachea Midline Respiratory: Symmetrical Chest Expansion and Respiratory Effort, - - grossly clear lung exam today, wheezing in neck on forced expiration Cardiovascular: NL Sounds; No Murmurs; No JVD, - - irregular Abdominal: NL Sounds; No Tenderness; No Distention Lymphatic: No Axillary Adenopathy Extremities: No Edema Skin: No Rash or Ulcers, No Nodules or Sclerosis Neurological: Alert and Oriented x 3, NL Muscle Strength and Tone Result Diagrams: 04/01/19 04:59 04/01/19 04:59 Additional Lab and Data: Lab Results 03/31/19 03/31/19 Range/Units 05:49 05:49 WBC 17.6 H (3.5-10.8) 10^3/uL RBC 4.61 (4.18-5.48) 10^6 /uL Hgb 13.5 L (14.0-18.0) g/dL Hct 40 L (42-52) % MCV 87 (80-94) fL MCH 29 (27-31) pg MCHC 34 (31-36) g/dL RDW 15 (10-15) % Plt Count 250 (150-450) 10^3/uL MPV 7.9 (7.4-10.4) fL Neut % (Auto) 76.4 % Lymph % (Auto) 17.6 % [place] % (Auto) 5.5 % Eos % (Auto) 0.2 % Baso % (Auto) 0.3 % Absolute Neuts (auto) 13.4 H (1.5-7.7) 10^3/ul Absolute Lymphs (auto) 3.1 (1.0-4.8) 10^3/ul Absolute Monos (auto) 1.0 H (0-0.8) 10^3/ul Absolute Eos (auto) 0.0 (0-0.6) 10^3/ul Absolute Basos (auto) 0.0 (0-0.2) 10^3/ul Absolute Nucleated RBC 0.0 10^3/ul Nucleated RBC % 0.0 Sodium 135 (135-145) mmol/L Potassium 4.1 (3.5-5.0) mmol/L Chloride 105 (101-111) mmol/L Carbon Dioxide 23 (22-32) mmol/L Anion Gap 7 (2-11) mmol/L BUN 19 (6-24) mg/dL Creatinine 0.66 L (0.67-1.17) mg/dL Est GFR ( Amer) 138.1 (>60) Est GFR (Non-Af Amer) 114.2 (>60) BUN/Creatinine Ratio 28.8 H (8-20) Glucose 141 H (70-100) mg/dL Calcium 8.8 (8.6-10.3) mg/dL Total Bilirubin 0.50 (0.2-1.0) mg/dL AST 34 (13-39) U/L ALT 24 (7-52) U/L Alkaline Phosphatase 143 H (34-104) U/L Total Protein 6.9 (6.4-8.9) g/dL Albumin 3.6 (3.2-5.2) g/dL Globulin 3.3 (2-4) g/dL Albumin/Globulin Ratio 1.1 (1-3) Microbiology and Other Data: Microbiology 03/31/19 09:25 Legionella Urinary Antigen - Final Urine Negative Legionella Antigen Streptococcus pneumoniae Ag Screen - Final Negative S. pneumo Antigen Assess/Plan/Problems-Billing Assessment: 88 yo M with h/o a. fib readmitted for pneumonia with bronchospasm - Patient Problems (1) Pneumonia Comment: cont Doxy/Cefepime Pneumonia wirh severe sepsis at admission Bronchospasm: mostly resolved. will d/c solu Medrol and start prednisone. 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 Swallow eval tomorrow, then likely d/c (2) Afib Comment: - Rate is controlled without rate control agents - cont Xarelto (3) DVT prophylaxis Comment: Xarelto Status and Disposition: inpatient
[2019-04-03] MEDS: Cefepime 1 GM in Dextrose(*) 1 GM/50 ML BAG IV SCH ×2 (12:36→23:06)
[2019-04-03] MEDS: DOXYcycline IV* 100 MG in NS 0.9% 250 ML* 250 ML IVPB SCH ×2 (13:57→23:57)
[2019-04-03] MEDS: Rivaroxaban TAB(*) 20 MG TAB PO SCH (17:07)
[2019-04-04] MEDS ORDERED: predniSONE TAB* 20 MG PO SCH (09:00)
[2019-04-04] MEDS: Tamsulosin CAP* 0.4 MG PO SCH (10:00)
[2019-04-04] MEDS: Ferrous Sulfate TAB* 325 MG PO SCH (10:00)
[2019-04-04] MEDS: Polyethylene Glycol 3350* 17 GM PACKET PO SCH (10:00)
[2019-04-04] MEDS: Finasteride TAB* 5 MG PO SCH (10:01)
[2019-04-04] MEDS: Cyanocobalamin TAB* 500 MCG PO SCH (10:01)
[2019-04-04] MEDS: Docusate CAP* 100 MG PO SCH ×2 (10:01)
[2019-04-04] MEDS: guaiFENesin ER TAB 600 MG PO SCH (10:01)
[2019-04-04] MEDS: Magnesium Hydroxide LIQ* 30 ML UDC PO SCH (10:01)
[2019-04-04] MEDS: Cefepime 1 GM in Dextrose(*) 1 GM/50 ML BAG IV SCH (11:21)
[2019-04-04 11:33] VITALS: BP 147/64
[2019-04-04] MEDS: DOXYcycline IV* 100 MG in NS 0.9% 250 ML* 250 ML IVPB SCH (12:20)
--- NOTE | 2019-04-04 23:01 | DS ---
CC: Dr. Vidales * DISCHARGE SUMMARY: DATE OF ADMISSION: 03/31/19 DATE OF DISCHARGE: 04/04/19 PRIMARY CARE PROVIDER: Dr. Vidales. DISPOSITION ON DISCHARGE: Home. CONDITION ON DISCHARGE: Stable. DISCHARGE DIAGNOSIS: Severe sepsis due to pneumonia with bronchospasm. SECONDARY DIAGNOSES: 1. History of problems with swallowing for the past 2 years with a negative barium swallow at the time of discharge. 2. History of atrial fibrillation, chronic, on anticoagulation. 3. History of prostate cancer, status post prostatectomy. 4. History of BPH. 5. History of hemorrhoids. 6. History of reactive airway disease. MEDICATIONS AT DISCHARGE: Include: 1. Doxycycline 1 tablet p.o. b.i.d. at 100 mg each for a total of 2 days, then stop. 2. Prednisone taper 40 mg daily for 2 days, then 20 mg daily for 2 days, then 10 mg daily for 2 days, then stop. 3. Albuterol inhaler 1 to 2 puffs every 6 hours p.r.n. wheezing. Remaining medications are unchanged from home and include: 1. Vitamin B12 500 mcg daily. 2. Cyclosporine ophthalmic 1 drop both eyes daily. 3. Ferrous sulfate 325 mg daily. 4. Finasteride 5 mg daily. 5. MiraLAX 1 packet daily. 6. Xarelto 20 mg daily. 7. Flomax 0.4 mg daily. LABORATORY DATA AND STUDIES PERFORMED DURING THE HOSPITAL STAY: Include: On : White blood cell count 7.3, hemoglobin 12.8, hematocrit 37, platelets 224. Sodium 137, potassium 4.1, chloride 107, carbon dioxide 23, BUN 14, creatinine 0.5. Lactic acid on admission was 3.8. Influenza testing was negative. Video fluoroscopic swallow obtained on 04/04/19: Impression: "Negative exam. Please correlate with the speech pathology report." X-ray of the soft tissue of the neck showed no radiopaque foreign body seen on this neck x-ray. HOSPITAL COURSE: Joe Estes is an 88-year-old male who was a readmission for our service for pneumonia. He was admitted with pneumonia and observed overnight from 03/29/19 to 03/30/19, discharged on 03/30/19 only to come back on 03/31/19 with severe bronchospasm and elevated lactic acid. He was diagnosed with severe sepsis with pneumonia with bronchospasm. He was placed on broad-spectrum antibiotics including cefepime as well as doxycycline and steroids. Initially for the initial 2 days of his hospital stay, he did have significantly increased work of breathing due to bronchospasms and wheezing that resolved gradually. In the second part of his hospital stay, he was noted to have wheezing on forced expiration and apparently had been complaining of problems with swallowing for the past 2 years. A video swallow was obtained at discharge which showed no abnormalities. The patient is recommended to follow up with an ENT doctor if he still continues to have problems with sensation of a foreign body in his throat once his treatment for pneumonia is completed. The broncho-spasm resolved by the time of discharge and he is recommended to slowly taper his prednisone off as mentioned above. The patient is going to be prescribed 2 days of doxycycline to complete his antibiotic treatment. The patient is being discharged home. Recommendation to follow up with Dr. Vidales in 5 to 7 days. PHYSICAL EXAMINATION AT THE TIME OF DISCHARGE: Vital Signs: Blood pressure 147 /64, heart rate of 77 and regular, respiratory rate of 20, oxygen saturation 97 % on room air, and temperature 97.5. General Appearance: This is a very pleasant 88- year-old male who is primarily [place]ian speaking. The patient is in no acute distress. Alert, awake, and oriented x3. HEENT: Head atraumatic and normocephalic. Eyes: Pupils are equal, round, and reactive to light and accommodation. Oropharynx clear. Mucosa moist. Neck: Supple. No JVD. No bruits bilaterally. Cardiovascular: Irregularly irregular rhythm. No murmur. Respiratory: Clear to auscultation bilaterally. Abdomen: Soft and nontender. Bowel sounds present in all 4 quadrants. Extremities: There is no edema. Pulses are +2 bilaterally. No clubbing or cyanosis. On neuro evaluation, speech is clear. Cranial nerves II through XII grossly intact. Motor strength is 5/5 bilaterally. Please note that this is a short summary of the patient's hospital stay. Please refer to further medical records for details. TIME SPENT: Approximately 35 minutes was spent on the patient's discharge. [id number]/[facility] #: [id number] MTDD
== END 2019-04-04 15:40 | disposition home health service (06) | DRG 871 ==
LOC: ED 04:52 → MED 08:31
PROVIDERS: ADMIT Internal Medicine; ATTEND Internal Medicine
DX: A41.9 Sepsis, unspecified organism (principal); J18.9 Pneumonia, unspecified organism; R65.20 Severe sepsis without septic shock; I10 Essential (primary) hypertension; H91.90 Unspecified hearing loss, unspecified ear; N40.0 Benign prostatic hyperplasia without lower urinary tract symptoms; I48.2 Chronic atrial fibrillation; R13.10 Dysphagia, unspecified; J45.909 Unspecified asthma, uncomplicated; Z85.46 Personal history of malignant neoplasm of prostate; Z90.79 Acquired absence of other genital organ(s); Z97.4 Presence of external hearing-aid; Z98.49 Cataract extraction status, unspecified eye; Z85.828 Personal history of other malignant neoplasm of skin
CPT/HCPCS: 36415; 70360; 71045; 71046; 74230; 80048; 80053; 83605; 83735; 83880; 84484; 85025; 85027; 85379; 85610; 86140; 87040; 87070; 87205; 87899; 93005; 94640; 96365; 96367; 96374; 99213; 99284; A9270-GY; G0378; G0463; J0456; J0692; J0696; J2920; J2930; J3475; J7512